=== PATIENT | male | born 1950 | race Caucasian/White ===

== ENCOUNTER 2020-10-18 13:33 | Outpatient (CLI) | payer MEDICARE, SELFPAY ==
--- NOTE | ~2020-10-18 | CT_ITS ---
EXAMINATION: CT abdomen pelvis wo/w con DATE: 10/18/2020 14:13 INDICATION: Gross hematuria TECHNIQUE: Computed tomography (CT) of the abdomen and pelvis was performed without intravenous contr ast. CT of the abdomen and pelvis was then performed with a total of 130 mL Omnipaque 350 intravenous contrast using a double-bolus technique for simultaneous opacification of the renal parenchyma and r enal collecting system. The dose-length product (DLP) was 1387.14 mGy-cm. Automated exposure control and iterative reconstruction technique were employed. COMPARISON: 05/28/2018 FINDINGS: Minimal dependent atelectasis is present in the lung bases. Cardiomegaly is noted. There ar e changes of coronary artery bypass grafting and aortic valve repair. The liver, spleen, pancreas, ga llbladder, and adrenal glands are normal. Cysts of the kidneys measure up to 1.4 cm on the left. Ther e is a 4 mm nonobstructing stone of the left kidney lower pole. No stones are identified in the left kidney, ureters, or bladder. There is no hydronephrosis or hydroureter. There is chronic irregularity at the base of the bladder wall near the prostate. A moderate volume of colonic stool is present. No pathologically enlarged abdominal or pelvic lymph nodes are identified. There is no free intraperito xochitl gas or evidence of bowel obstruction. The appendix is normal. There is moderate lumbar spondylos is. IMPRESSION: 1. Chronic irregularity at the base of the bladder which could reflect prostatomegaly, prior TURP pro cedure, or possibly bladder wall thickening. Direct visualization is recommended if not previously pe rformed. 2. Nonobstructing left nephrolithiasis. Reviewed, dictated and finalized at location A. ING MACHINE COLLECTOR IMPRESSION: 1. Chronic irregularity at the base of the bladder which could reflect prostato megaly, prior TURP procedure, or possibly bladder wall thickening. Direct visua lization is recommended if not previously performed. 2. Nonobstructing left nephrolithiasis.
--- NOTE | ~2020-10-18 | XR_ITS ---
EXAMINATION: XR abdomen/kub 1V INDICATION: Gross hematuria TECHNIQUE: Supine views of the abdomen were obtained on 2 radiographs. COMPARISON: CT from today FINDINGS: No urinary tract calculi are identified. The known left kidney lower pole stone is obscured by bowel gas. There are no dilated loops of bowel. Moderate lumbar spondylosis is noted. There is mi ld to moderate osteoarthritis of the hips. IMPRESSION: 1. No radiographic correlate for the patient's symptoms. Reviewed, dictated and finalized at location A. OR ARCHITECT
[2020-10-18 13:55] LABS: Estimated Glomerular Filt Rate 46
== END 2020-10-18 13:34 | disposition home or self-care (01) ==
PROVIDERS: PCP Internal Medicine; Visit Provider Nurse Practitioner Adult Health
DX: R31.0 Gross hematuria (principal); N20.0 Calculus of kidney
CPT/HCPCS: 74018; 74178; Q9967

== ENCOUNTER 2020-10-27 09:28 | Outpatient (CLI) | payer MEDICARE, SELFPAY ==
--- NOTE | ~2020-10-27 | XR_ITS ---
XR knee RT 3V 10/27/2020 09:45 Indication: Right knee pain Procedure: 3 views right knee Comparison: No prior studies for comparison. Findings: No fracture, subluxation or dislocation. No significant joint effusion. Mild osteoarthritis . Impression: 1: Mild osteoarthritis of the right knee. Reviewed, dictated and finalized at location A. SCRUBBER Impression: 1: Mild osteoarthritis of the right knee.
== END 2020-10-27 09:29 | disposition home or self-care (01) ==
PROVIDERS: PCP Internal Medicine; Visit Provider Nurse Practitioner
DX: M17.11 Unilateral primary osteoarthritis, right knee (principal)
CPT/HCPCS: 73562

== ENCOUNTER 2020-11-24 14:43 | Outpatient (CLI) | payer MEDICARE, SELFPAY ==
--- NOTE | ~2020-11-24 | CT_ITS ---
EXAMINATION: CT knee RT wo con DATE: 11/24/2020 15:18 INDICATION: Right knee pain. TECHNIQUE: Computed tomography (CT) of the right knee was performed without intravenous contrast. Aut omated exposure control and iterative reconstruction technique were employed. The dose-length product was 457.94 mGy-cm. COMPARISON: Right knee radiographs 10/27/2020 FINDINGS: Bone alignment is normal. No fracture. There is mild tricompartmental osteoarthritis. No kn ee joint effusion. There is severe fatty atrophy of semimembranosus muscle and tibialis anterior musc le. There are subcutaneous surgical clips medial to the proximal tibia. IMPRESSION: 1. Mild right knee osteoarthritis. Reviewed, dictated and finalized at location A. CAL RECORDS CLERK
== END 2020-11-24 14:44 | disposition home or self-care (01) ==
PROVIDERS: PCP Internal Medicine; Visit Provider Nurse Practitioner
DX: M17.11 Unilateral primary osteoarthritis, right knee (principal)
CPT/HCPCS: 73700

== ENCOUNTER 2021-08-03 09:35 | Outpatient (CLI) | payer MEDICARE, SELFPAY ==
--- NOTE | ~2021-08-03 | CT_ITS ---
EXAMINATION: CT brain wo con DATE: 08/03/2021 10:08 INDICATION: Left-sided headache and dizziness TECHNIQUE: Computed tomography (CT) of the head was performed without intravenous contrast. Sagittal and coronal reconstructions were performed. The mA was adjusted according to patient size. Iterative reconstruction technique was employed. The dose-length product was 605.33 mGy-cm. COMPARISON: None FINDINGS: No acute intracranial hemorrhage, acute infarction or abnormal extra axial fluid collection. There is mild scattered white matter hypoattenuation consistent with chronic small vessel ischemic disease. Ventricles are normal and symmetric. No mass/mass effect. Mucosal thickening in the bilateral ethmoid and maxillary sinuses. Prior bilateral antral window procedures. The orbits and mastoid air cells ar e normal. IMPRESSION: 1. Normal aging brain. No acute intracranial process. Reviewed, dictated and finalized at location A.
== END 2021-08-03 09:36 | disposition home or self-care (01) ==
LOC: ANHIMG 09:36
PROVIDERS: PCP Internal Medicine; Visit Provider Clinical Nurse Specialist
DX: R51.9 Headache, unspecified (principal)
CPT/HCPCS: 70450

== ENCOUNTER 2021-10-03 00:06 | Emergency (ER) | payer MEDICARE, SELFPAY ==
--- NOTE | ~2021-10-03 | CT_ITS ---
EXAMINATION: CT abdomen pelvis w con EXAM DATE: 10/03/2021 02:40 INDICATION: Epigastric pain. TECHNIQUE: Spiral CT of the abdomen and pelvis was performed following intravenous injection of 100 m L Omnipaque 350. Axial, coronal and sagittal images of the abdomen and pelvis were reviewed. The do se-length product (DLP) for this examination was 746.09 mGy-cm. The exposure was tailored according to patient size (auto mA exposure control), and iterative reconstruction (ASIR) was used as additiona l dose reduction technique. Comparison is made to prior examination from 10/18/2020. FINDINGS: The liver, spleen, adrenal glands and pancreas are unremarkable. The gallbladder is modera tely distended with enhancing mucosa and indistinct wall, small amount of pericholecystic fluid in th e gallbladder fossa. No calcified cholelithiasis. Possible acute cholecystitis. There is prostatomegaly, prostate measuring 5 cm in transverse dimension and also probable TURP defec t. Kidneys enhance symmetrically, no hydronephrosis. There is 4 mm left inferior calyceal stone which is nonobstructing. The bladder is unremarkable. There is no retroperitoneal or pelvic lymphadenop athy. There is mild scattered arteriosclerotic disease. There are no findings to suggest appendicitis. The stomach and small bowel are unremarkable. There is expected amount of colonic stool. No free intraperitoneal gas. The heart is normal in size. T here are no pericardial or pleural effusions. The lung bases are unremarkable. There are no osteobl astic or osteolytic lesions identified. IMPRESSION: Possible acute cholecystitis. Recommend clinical correlation, ultrasound. I discussed this case, recommendation with primary care provider Phuong Rae at 10/03/2021 08:50 CS T, patient has already been discharged from the emergency room. Reviewed, dictated and finalized at location B. P TECHNICIAN IMPRESSION: Possible acute cholecystitis. Recommend clinical correlation, ultra sound. I discussed this case, recommendation with primary care provider Phuong Rae at 10/03/2021 08:50 SETUP TECHNICIAN, patient has already been discharged from the emergency room.
--- NOTE | ~2021-10-03 | XR_ITS ---
EXAMINATION: XR chest 2V DATE: 10/03/2021 01:02 INDICATION: Midsternal chest pain TECHNIQUE: AP and lateral views of the chest are obtained. COMPARISON: 10/14/2019 FINDINGS: The lungs are free of acute opacities. There is no pleural effusion or pneumothorax. The he art size is normal. There are changes of cardiac valve surgery and coronary artery bypass grafting. T here is moderate thoracic spondylosis. IMPRESSION: 1. No acute cardiopulmonary abnormality. Reviewed, dictated and finalized at location A. TION TECHNICIAN AIRCRAFT
[2021-10-03 00:17] VITALS: BP 172/85; PULSE 61; RESP 21; TEMP 36.6; O2SAT 100
[2021-10-03 00:20] VITALS: BP 172/85; PULSE 59; RESP 15; O2SAT 100
--- NOTE | 2021-10-03 00:27 | ECG_ITS ---
Measurements Intervals [place] Rate: 60 P: 55 HI: 236 QRS: -56 QRSD: 133 T: 19 QT: 399 QTc: 399 Interpretive Statements SINUS RHYTHM WITH FIRST DEGREE AV BLOCK POSSIBLE LEFT ATRIAL ENLARGEMENT LEFT AXIS DEVIATION LEFT BUNDLE BRANCH BLOCK ABNORMAL ECG Electronically Signed On 10-03-2021 6:17:48 CLERICAL SUPERVISOR by Sid Marrufo D.O.
[2021-10-03 01:02] LABS: Basophils Percent Auto 0.4 % (0.2-1.2); Eosinophils Absolute Auto 0.2 K/mm3 (0-0.3); Eosinophils Percent Auto 2.1 % (0-4.4); Hematocrit 47.8 % (42.0-52.0); Hemoglobin 16.4 g/dL (14.0-18.0); Immature Granulocyte Absolute 0.02 K/mm3 (0.00-0.031); Immature Granulocyte Percent A 0.2 % (0-0.5); Immature Platelet Fraction Pct 4.8 % (0.9-11.2); Lymphocytes Absolute Auto 1.88 K/mm3 (0.9-3.2); Lymphocytes Percent Auto 23.2 % (18.3-44.2); Mean Corpuscular HGB Conc 34.3 g/dl (32-36); Mean Corpuscular Hemoglobin 30.8 pg (26-34); Mean Corpuscular Volume 89.8 fl (80-100); Mean Platelet Volume 10.8 fl (7.4-10.4); Monocytes Absolute Auto 0.4 K/mm3 (0.1-0.6); Monocytes Percent Auto 4.6 % (2.6-8.5); Neutrophils Absolute Auto 5.7 K/mm3 (1.3-6.7); Neutrophils Percent Auto 69.5 % (45.5-73.1); Platelet Count Result 142 k/mm3 (150-375); Red Blood Count 5.32 M/mm3 (4.6-6.20); Red Cell Distribution Width 13.2 % (11.5-14.5); White Blood Count 8.1 K/mm3 (4.5-10.0)
[2021-10-03 01:12] LABS: Alanine Aminotransferase 37 U/L (4-50); Albumin Level 4.4 g/dL (3.5-5.1); Alkaline Phosphatase 73 U/L (38-126); Anion Gap 11 mmol/L (8-16); Aspartate Amino Transferase 37 U/L (17-59); Blood Urea Nitrogen 19 mg/dL (9-20); Calcium 9.3 mg/dL (8.4-10.2); Carbon Dioxide 25 mmol/L (22-30); Chloride 104 mmol/L (98-107); Estimated CRCL calculation 61 ml/min; Estimated Glomerular Filt Rate > 60; Glucose 113 mg/dL (65-110); Lipase 83 U/L (23-300); Potassium 4.1 mmol/L (3.4-5.0); Sodium 140 mmol/L (137-145)
[2021-10-03 01:24] LABS: Troponin I < 0.012 ng/mL (0.000-0.034)
[2021-10-03 01:25] LABS: Prothrombin Time 13.1 Seconds (11.1-14.7)
[2021-10-03 01:26] LABS: Partial Thromboplastin Time 32.4 SECONDS (22.3-36.8)
[2021-10-03] MEDS: ASPIRIN 81 MG CHEWABLE TABLET 324 MG PO (01:31)
[2021-10-03] MEDS: LIDOCAINE HCL 2% VISC SOLN 15 ML UDC 20 ML PO (01:44)
[2021-10-03] MEDS: MAG HYDROX/AL HYDROX/SIMETH 30 ML UDC PO (01:44)
[2021-10-03] MEDS: SODIUM CHLORIDE 0.9% IV 1,000 ML 999 ML IV CONT (01:44)
--- NOTE | 2021-10-03 02:06 | ED.CHESTPAIN ---
HPI - Chest Pain General Chief Complaint: Chest Pain Stated Complaint: CP Time Seen by Provider: 10/03/21 00:46 Source: patient and old records reviewed History of Present Illness HPI narrative: Patient presents with epigastric pain that started around 4:30 PM. Patient reports he reports he was driving home from work when his pain developed. He took some Tums at home which provided some relief of his symptoms his pain persisted throughout the evening so he came to the ER for evaluation he describes it as a tight sensation without clear aggravating or alleviating factors. It radiates from his epigastric area up into his chest. He is attempted to walk around but that did not alleviate or exacerbate his symptoms. Is not noted shortness of breath or diaphoresis. Reports he has nausea but thinks it is due to the intensity of the pain denies any vomiting. 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 Related Data Home Medications Medication Instructions Recorded Confirmed aspirin [Aspir-81] 81 mg PO DAILY 08/27/19 08/03/21 atorvastatin 20 mg PO DAILY 08/27/19 08/03/21 famotidine 08/27/19 08/03/21 metoprolol tartrate 12.25 mg PO BID 08/27/19 08/03/21 zinc sulfate-vitamin C 200 mg-100 tablet PO DAILY tablet 10/27/20 08/03/21 mg tablet Allergies Allergy/AdvReac Type Severity Reaction Status Date / Time Penicillins Allergy Unknown Rash Verified 10/03/21 00:28 Review of Systems Review of Systems: CONSTITUTIONAL: Denies fever, chills, or sweats. EYES: Denies visual changes, redness, or discharge. ENT: Denies rhinorrhea, congestion, sore throat, or otalgia. CARDIOVASCULAR: Denies palpitations, or edema. RESPIRATORY: Denies cough or dyspnea. GASTROINTESTINAL: Denies abdominal pain, nausea, vomiting, or diarrhea. GENITOURINARY: Denies dysuria or hematuria. SKIN: Denies rash or itching. MUSCULOSKELETAL: Denies back pain, joint pain, or myalgia. NEUROLOGIC: Denies headache, numbness, dizziness, or weakness. PSYCHIATRIC: Denies anxiety or depression. All systems reviewed & are unremarkable except as noted in HPI and below PMFSH Past Medical History Medical History Allergies Gout Heart murmur History of measles, mumps, or rubella Insomnia Thrombocytopenia, unspecified Surgical History Surgical History History of prostate surgery 2010 Hx of CABG Family History Family History Mother Acute myocardial infarction Father Lupus Sibling Lupus Social History Social History Smoking status: Never smoker Alcohol intake: never Exam Narrative: GENERAL: Well-appearing, well-nourished, and in no acute distress. HEAD: Normocephalic, atraumatic. EYES: PERRLA and EOMI. ENT: Nares clear, no rhinorrhea or epistaxis. Mucous membranes moist. NECK: Supple. No masses. No JVD CHEST: Clear to auscultation. No respiratory distress. No wheezes rales or rhonchi HEART: Regular rate and rhythm. 3-5 systolic murmur previously noted normal peripheral pulses. ABDOMEN: Moderate tenderness palpation in the epigastric area soft, nondistended, normal active bowel sounds. EXTREMITIES: Normal range of motion. No edema. SKIN: Warm, dry, no rash. NEURO: No focal deficits. Alert and oriented x3. PSYCH: Normal mood and affect. Course Reevaluation(s) Reevaluation #1: Patient is feeling improved after GI cocktail. Date: 10/03/21 Time: 02:31 Reevaluation #2: Patient continues to feel much improved results and plan reviewed with patient. Patient is comfortable with outpatient plan. Date: 10/03/21 Time: 03:34 Vital Signs Vital signs: Vital Signs Temperature 36.6 C 10/03/21 00:17 Pulse Rate 61 10/03/21 00:17 Respiratory Rate 21 H 10/03/21 00:17 Blood Pressure 172/85 H 10/03/21 00:17 Pulse Oximetry
== END 2021-10-03 04:05 | disposition home or self-care (01) ==
PROVIDERS: Emergency Provider Emergency Medicine; PCP Internal Medicine
DX: R10.9 Unspecified abdominal pain (principal); R01.1 Cardiac murmur, unspecified; G47.00 Insomnia, unspecified; Z95.1 Presence of aortocoronary bypass graft
CPT/HCPCS: 36415; 71046; 74177; 80053; 83690; 84484; 85025; 85055; 85610; 85730; 93005; 96360; 99284; A9270; J7030; Q9967

== ENCOUNTER 2021-10-04 06:36 | Outpatient (CLI) | payer MEDICARE, SELFPAY ==
--- NOTE | ~2021-10-04 | US_ITS ---
EXAMINATION: US right upper quadrant DATE: 10/04/2021 08:00 INDICATION: Right upper quadrant pain TECHNIQUE: Multiple grayscale and Doppler ultrasound images of the abdomen were obtained. COMPARISON: None available FINDINGS: Bowel gas obscures visualization of the pancreas. The liver is normal with normal echogenic ity and echotexture. No surface nodularity. Normal hepatopetal flow in the main portal vein. The gall bladder is distended. No stones or gallbladder wall thickening are identified. The dilated common nathalie e duct measures 7 mm. IMPRESSION: 1. Distended gallbladder and common bile duct of unclear etiology. Consider further evaluation with n uclear hepatobiliary scan. Reviewed, dictated and finalized at location A. TAL PROGRAM MANAGER IMPRESSION: 1. Distended gallbladder and common bile duct of unclear etiology. Consider fur ther evaluation with nuclear hepatobiliary scan.
== END 2021-10-04 06:37 | disposition home or self-care (01) ==
LOC: ANHIMG 06:42
PROVIDERS: PCP Internal Medicine; Visit Provider Nurse Practitioner
DX: R10.13 Epigastric pain (principal)
CPT/HCPCS: 76705

== ENCOUNTER 2021-10-18 07:54 | Outpatient (CLI) | payer MEDICARE, SELFPAY ==
--- NOTE | 2021-10-18 | EST_ITS ---
Patient Info Name: Vaibhav Daniels Age: 71 years : 1950 Gender: Male Ht: 74 in Wt: 215 lbs BSA: 2.27 m2 Exam Date: 10/18/2021 9:20 AM Exam Location: [facility] Stress Patient Status: Outpatient Admit Date: 10/18/2021 Staff Ordering Physician: Brandyn Toledo MD Attending Provider: Brandyn Toledo MD Exercise Technologist: Krupa Navarrete RDCS Exercise Physician: Dakotah Mcrae MD Exam Type: CA stress radha w NM Study Info Indications Z01.818 - Encounter for other preprocedural examination R94.31 - Abnormal electrocardiogram ECG EKG I44.7 - Left bundle-branch block, unspecified A regadenoson stress test was performed. Summary 1. nondiagnostic EKG portion of Lexiscan stress test for ischemia. 2. Follow-up on SPECT images. Protocol: Lexiscan Stress ECG Details Stage: REST Duration (min): 1 min : 4 sec HR (bpm): 58 SBP (mmHg): 130 DBP (mmHg): 86 Stage: REST Duration (min): 12 min : 31 sec HR (bpm): 57 SBP (mmHg): 130 DBP (mmHg): 86 Stage: STAGE 1 Duration (min): 1 min : 0 sec HR (bpm): 64 SBP (mmHg): 134 DBP (mmHg): 81 Stage: RECOVERY Duration (min): 1 min : 0 sec HR (bpm): 76 SBP (mmHg): 134 DBP (mmHg): 81 Stage: RECOVERY Duration (min): 2 min : 0 sec HR (bpm): 75 SBP (mmHg): 144 DBP (mmHg): 74 Stage: RECOVERY Duration (min): 3 min : 0 sec HR (bpm): 72 SBP (mmHg): 133 DBP (mmHg): 75 Stage: RECOVERY Duration (min): 3 min : 59 sec HR (bpm): 75 SBP (mmHg): 133 DBP (mmHg): 75 Rest HR: 57 bpm Peak HR: 78 bpm Rest Sys BP: 130 mmHg Peak Sys BP: 144 mmHg Max Pred HR: 148 bpm % Max Pred HR: 53 % Target HR: 126 bpm Max RPP: 11,232 bpm*mmHg Total Time: 1 min : 0 sec Rest Dubois BP: 86 mmHg Peak Dubois BP: 74 mmHg Total Dose: 0.4 mg Resting ECG Sinus rhythm left bundle branch block. Stress ECG No diagnostic changes. Arrhythmias No arrhythmias were observed during the examination. Report Signatures
--- NOTE | ~2021-10-18 | NM_ITS ---
EXAMINATION: NM radha stress w perfusion DATE: 10/18/2021 10:42 INDICATION: New onset left bundle branch block. TECHNIQUE: Rest images were obtained following intravenous administration of 10.2 mCi Tc99m tetrofosm in (Myoview). The patient was infused intravenously with Lexiscan (regadenoson). Then, 30.16 mCi Tc99 m tetrofosmin (Myoview) was administered intravenously, and stress images were obtained. Data was rec onstructed into short axis and horizontal and vertical long axis SPECT images. Gated SPECT images wer e also obtained. COMPARISON: CT abdomen and pelvis 10/03/2021 FINDINGS: There is a small, mild, reversible perfusion defect involving left ventricular apex and api lee anterior segment, consistent with ischemia. There is no segmental wall motion abnormality. Left ventricular ejection fraction measures 55%. IMPRESSION: 1. Small area of mild ischemia involving left ventricle apex and apical anterior segment. 2. Normal left ventricular ejection fraction measuring 55%. Reviewed, dictated and finalized at location B. OLITHOGRAPHER IMPRESSION: 1. Small area of mild ischemia involving left ventricle apex and apical anterio r segment. 2. Normal left ventricular ejection fraction measuring 55%.
== END 2021-10-18 07:55 | disposition home or self-care (01) ==
LOC: ANHCARD 07:55
PROVIDERS: PCP Internal Medicine; Visit Provider Internal Medicine Cardiovascular Disease
DX: I44.7 Left bundle-branch block, unspecified (principal); Z01.818 Encounter for other preprocedural examination; R94.31 Abnormal electrocardiogram [ECG] [EKG]
CPT/HCPCS: 78452; 93017; A9502; J2785

== ENCOUNTER → 2021-10-19 01:05 | Outpatient (CLI) | payer MEDICARE, SELFPAY ==
[2021-10-20 16:52] LABS: SARS-CoV-2 RNA PCR Negative
== END ==
PROVIDERS: PCP Internal Medicine; Visit Provider Surgery
DX: Z01.812 Encounter for preprocedural laboratory examination (principal); Z20.822 Contact with and (suspected) exposure to COVID-19
CPT/HCPCS: C9803; U0003; U0005

== ENCOUNTER 2021-10-22 00:56 | Day surgery (SDC) | payer MEDICARE, SELFPAY ==
--- NOTE | 2021-10-17 12:36 | PC.NURSE ---
Report to the Outpatient Waiting Room, entrance under the green pavilion located off [facility], at time _1300 on date _10/22/21 . OR Time: _1500 . - You and your visitor will be asked a series of questions to screen for COVID 19 for your protection. - A mask is required within the hospital. - Only one visitor is allowed at this time. Patient visitors will be guided where to wait when not with patient. Preoperative COVID Testing Requirements: No COVID Test needed if: (proof is required; if not received patient will have Rapid Test prior to entry) COVID TESTING 10/19/21 AT 0915 - Patient has received COVID Vaccine at least 14 days prior to procedure date or - Patient has positive COVID test result within last 90 days of surgery date. COVID Test needed if above criteria is not met If not COVID vaccinated a COVID test must be conducted within 72 hours of surgery and patient is asked to isolate self from time of testing until procedure. You will go to the [facility] for your COVID testing. The [facility] site is located at the corner of [address] [facility]. You will only be called if COVID results are positive and your surgeon may reschedule your elective surgery date. Patients may have clear liquids (water, carbonated beverages, clear teas, apple juice) until 3 hours prior to surgery with a maximum of 20 ounces. - No food from midnight until time of surgery - Infants may have breast milk until 4 hours before surgery, formula 6 hours prior to surgery. - Children will be allowed to drink immediately following surgery. If applicable, please bring a bottle or sippy cup to assist with drinking. Juice, water, soda, and popsicles are readily available. For infants on formula, please bring formula the day of surgery. Pacifiers are allowed. Take the following medications with a SIP of water the morning of surgery: _METOPROLOL Medications to discontinue per physician ALL VITAMINS AND SUPPLEMENTS 3 DAYS PRE OP Date to take last dose__10/18/21 Please no make-up, nail german, hairspray, perfume, deodorant, or body powder the day of surgery. No jewelry (including any body piercings) or valuables the day of surgery, leave them at home. Please take a shower or bath the night before, or the morning of, surgery with an antibacterial soap. Wear comfortable, loose fitting clothing. Children are encouraged to wear pajamas. - Jewelry must be removed prior to entering the operating room. Rings and piercings that are not removed may be cut off. - The hospital will not accept responsibility for valuables. - Please leave all valuables, including medications, at home the day of surgery. HIBICLENS SHOWER MORNING OF SURGERY If you are going home after surgery, a licensed fence post driver must drive you home. - NO public transportation without another adult. - We recommend that an adult stay with you for 24 hours following discharge. - We also recommend that you do not drive, make important decision, drink alcoholic beverages, or take any drugs that were not prescribed by your health care provider for at least 24 hours after your discharge time. For Pediatric surgeries, we recommend two adults accompany the child home (only one inside the building at this time). Follow any additional instructions given to you from your surgeon. Telephone instructions given to _PATIENT and asked if any additional questions and then verbalized understanding. Patient advised to call surgeon office or pre surgery nurse liaison [phone] if any additional questions.
[2021-10-17 12:48] VITALS: BMI 27.6
[2021-10-22] VITALS (9 sets, daily range): BP systolic 124–169; BP diastolic 65–86; PULSE 49–62; RESP 12–20; TEMP 36.1; O2SAT 100
--- NOTE | ~2021-10-22 | XR_ITS ---
EXAMINATION: XR cholangiogram surg 1st inj DATE: 10/22/2021 15:44 INDICATION: Intraoperative evaluation during laparoscopic cholecystectomy TECHNIQUE: Multiple fluoroscopic images of the right upper quadrant were obtained during intraoperati ve cholangiography. A total of 62 fluoroscopic images were obtained. The amount of fluoroscopy time used during this procedure was 0.3 minutes. COMPARISON: None. FINDINGS: Cannulation of the cystic duct demonstrates filling of a normal appearing common bile duct which tapers smoothly distally with no intraluminal filling defects or stricture. Contrast extends i nto the duodenum and central intrahepatic biliary tree which also appears normal. IMPRESSION: 1. No filling defects or strictures within the common bile duct or contrast opacified central biliary tree. Reviewed, dictated and finalized at location B. [place] PRICING COORDINATOR IMPRESSION: 1. No filling defects or strictures within the common bile duct or contrast opa cified central biliary tree.
[2021-10-22] MEDS: ACETAMINOPHEN 500 MG TABLET 1000 MG PO (13:14)
[2021-10-22] MEDS: LACTATED RINGERS 1,000 ML 30 ML IV CONT ×2 (13:20→15:46)
[2021-10-22] MEDS: KETOROLAC 15 MG/ML VIAL (*BKC) IV PUSH (13:26)
[2021-10-22 13:38] LABS: Amylase 79 U/L (30-110)
--- NOTE | 2021-10-22 14:04 | WPDANESEPPF ---
Anes - Initial Pre Proc Eval Procedure: Operation Date: 10/22/21 15:00 Proposed Procedures p Laparoscopic Cholecystectomy with Intra Operative Cholangiogram, Possible Open - Robb Balderas DO Date/Time: 10/22/21 14:04 Surgeon: Robb Balderas DO Pre Op Diagnosis: Acute Cholecystitis Patient Data Age: 71 Gender: M Height: 1.88 m Weight: 94.6 kg Last Vital Signs Temp 36.1 C L 10/22/21 12:57 Pulse 62 10/22/21 12:57 Resp 20 10/22/21 12:57 BP 151/86 H 10/22/21 12:57 Pulse Ox 100 10/22/21 12:57 Allergies Allergy/AdvReac Type Severity Reaction Status Date / Time Penicillins Allergy Unknown Rash Verified 10/22/21 13:11 Home Medications Medication Instructions Recorded Confirmed Type aspirin [Aspir-81] 81 mg PO DAILY 08/27/19 10/22/21 History atorvastatin 20 mg PO DAILY 08/27/19 10/22/21 History famotidine 20 mg PO DAILY 08/27/19 10/22/21 History metoprolol tartrate 12.5 mg PO BID 08/27/19 10/22/21 History loratadine 10 mg tablet 10 mg PO DAILY #90 tablet 07/12/20 10/22/21 Rx zinc sulfate-vitamin C 200 mg-100 1 tablet PO DAILY tablet 10/27/20 10/22/21 History mg tablet omeprazole 40 mg PO DAILY #20 cap 10/03/21 10/22/21 Rx cholecalciferol (vitamin D3) 50 mcg PO DAILY 10/17/21 10/22/21 History finasteride 5 mg PO DAILY 10/17/21 10/22/21 History sucralfate 1 g PO BID 10/17/21 10/22/21 History Laboratory Tests 10/22/21 13:22 Amylase 79 U/L U/L (30-110) Patient hx anesthesia problems: none Family hx anesthesia problems: none Results Review: All pre-operative results and documents have been reviewed as part of the pre-operative evaluation. [facility] Past Medical History Medical History Allergies Cholecystitis Gout Heart murmur History of measles, mumps, or rubella Insomnia Thrombocytopenia, unspecified Surgical History Surgical History History of prostate surgery 2010 Hx of CABG Family History Family History Mother Acute myocardial infarction Father Lupus Sibling Lupus Social History Social History Smoking status: Never smoker Alcohol intake: never Living arrangements: alone Spiritual care concerns: No Anes - Eval Final PreProcedure Day of Procedure 10/22/21 14:04 Patient weight: overweight Heart: regular rate and rhythm Lungs: clear to auscultation Airway: Mallampati scale class II Neurological: alert and oriented Last oral intake: >/= 8 hours ASA classification: III Emergent: no Anesthetic plan: proceed Anesthesia type and monitoring: general ETT and standard monitoring Results Review: All pre-operative results and documents have been reviewed as part of the pre-operative evaluation. Informed Consent: The patient's anesthetic plan and its attendant risks and benefits were discussed with the patient/family/POA. Questions were solicited and answers provided to the satisfaction of the patient/family/POA.
--- NOTE | 2021-10-22 14:24 | WPDHPUPDATE1 ---
History and Physical Update Update Date/Time: 10/22/21 14:24 History and Physical has been reviewed, including an updated exam of the patient. There are NO changes in the patient's condition. Risks, benefits, and alternatives have been discussed and questions answered. Patient agrees to proceed with procedure.
[2021-10-22] MEDS: ceFAZolin 2 GM/D5W 50 ML 2 GM/50 ML BAG IVPB (14:45)
[2021-10-22] MEDS: BUPIVACAINE/EPINEPHRINE 0.5% 10 ML VIAL 30 ML INFILTRATE (15:05)
--- NOTE | 2021-10-22 15:47 | W.PM.PROC2 ---
Procedure Note - Detailed Date of Procedure 10/22/21 Pre-op Diagnosis Acute Cholecystitis Post-op Diagnosis same Procedure Performed Laparoscopic Cholecystectomy with intraoperative cholangiogram Surgeon Robb Balderas, DO Anesthesia general and local (0.5% bupivacaine) Indications This is a 71-year-old man who presented with a prior episode of acute epigastric abdominal pain. He had gone to the emergency department and CT showed evidence of gallbladder wall thickening demonstrating possible acute cholecystitis. He then had a follow-up gallbladder ultrasound which showed evidence of a slightly dilated common bile duct but no evidence of cholelithiasis or cholecystitis. Discussions were made with the patient about treatment options and decision was made to proceed with laparoscopic cholecystectomy with intraoperative cholangiogram, possible open. Findings Laparoscopic cholecystectomy was performed. There were a few pericholecystic adhesions and some gallbladder wall thickening. The cystic duct appeared normal in size. An intraoperative cholangiogram was obtained using Omnipaque contrast and there was no evidence of filling defects or bile duct obstruction. The gallbladder was removed and sent to the lab for pathology. No definite gallstones were noted. Description of Procedure Procedure as well as risks, benefits, and alternatives were discussed with patient. Written consent was obtained and placed in chart prior to procedure. The patient was brought back to surgical suite. Patient was placed in supine position on operating table. Time-out was done to confirm patient and procedure. Patient was then intubated by the anesthesia department. Abdomen was prepped and draped in sterile fashion using chlorhexidine prep. 0.5% bupivacaine with epinephrine was infiltrated at each site of incision. A 5 millimeter incision was made near the umbilicus, and a 5 millimeter Optiview trocar was advanced through the abdominal layers under direct visualization. Once inside the abdominal cavity, carbon dioxide was insufflated to create a pneumoperitoneum. The camera was inserted and the abdomen was inspected. No immediate abnormalities were identified. The patient was placed in reverse Trendelenburg position and rotated slightly to the left. An 11 millimeter incision was made in the subxiphoid region, and an 11 millimeter trocar was inserted under direct visualization. Two 5 millimeter incisions were made in the right upper quadrant, and two 5 millimeter trocars were inserted under direct visualization. The gallbladder was identified and grasped at the fundus and retracted superiorly. It was then grasped at the infundibulum retracted laterally. Careful dissection around the neck of the gallbladder was performed using blunt dissection with a [place] grasper and hook electrocautery. The cystic duct was identified, and a window was created behind it. The cystic artery was also identified and a window was created behind it. The critical view of safety was identified, visualizing the cystic duct running directly into the neck of the gallbladder, and the cystic artery running directly into the wall of the gallbladder. A 5 millimeter clip die keeper was then used to place 2 clips proximally and 1 clip distally on the cystic artery. It was then transected using endoscopic scissors. The Sousa clamp was then placed across the neck of the gallbladder and the cholangiocatheter was then advanced into the distal neck gallbladder. Saline was able to flush with ease. The patient was then flattened out in bed and the intraoperative cholangiogram was obtained using Omnipaque contrast and fluoroscopy. The images were sent to the radiologist for interpretation. The catheter was then removed and the patient was placed back in reverse Trendelenburg position. A 5 mm Endoclip die keeper was used to place 2 clips proximally and 1 clip distally on the cystic duct and then it was transected u
== END 2021-10-22 18:15 | disposition home or self-care (01) ==
PROVIDERS: PCP Internal Medicine; Visit Provider Surgery
PROC: 0FT44ZZ Resection of Gallbladder, Percutaneous Endoscopic Approach (ICD-10-PCS; CPT 47562; principal; 2021-10-22 15:00)
DX: K81.1 Chronic cholecystitis (principal); Z79.82 Long term (current) use of aspirin; R01.1 Cardiac murmur, unspecified; Z95.1 Presence of aortocoronary bypass graft
CPT/HCPCS: 47563; 36415; 74300; 82150; 86850; 86900; 86901; 88304; A9270; J0690; J1100; J1885; J2405; J2704; J2710; J7030; J7120; Q9966

== ENCOUNTER 2023-02-17 15:32 | Outpatient (CLI) | payer MEDICARE, OTHER, SELFPAY ==
[2023-02-17 17:54] LABS: Basophils Percent Auto 0.5 % (0.2-1.2); Eosinophils Absolute Auto 0.3 K/mm3 (0-0.3); Eosinophils Percent Auto 4.4 % (0-4.4); Hematocrit 46.7 % (42.0-52.0); Hemoglobin 15.4 g/dL (14.0-18.0); Immature Granulocyte Absolute 0.03 K/mm3 (0.00-0.031); Immature Granulocyte Percent A 0.4 % (0-0.5); Immature Platelet Fraction Pct 8.1 % (0.9-11.2); Lymphocytes Absolute Auto 2.11 K/mm3 (0.9-3.2); Lymphocytes Percent Auto 27.5 % (18.3-44.2); Mean Corpuscular Hemoglobin 30.3 pg (26-34); Mean Corpuscular Volume 91.9 fl (80-100); Mean Platelet Volume 11.5 fl (7.4-10.4); Monocytes Absolute Auto 0.4 K/mm3 (0.1-0.6); Monocytes Percent Auto 5.2 % (2.6-8.5); Neutrophils Absolute Auto 4.8 K/mm3 (1.3-6.7); Platelet Count Result 114 k/mm3 (150-375); Red Blood Count 5.08 M/mm3 (4.6-6.20); Red Cell Distribution Width 13.6 % (11.5-14.5); White Blood Count 7.7 K/mm3 (4.5-10.0)
[2023-02-17 18:38] LABS: Alanine Aminotransferase 45 U/L (6-50); Albumin Level 3.9 g/dL (3.5-5.1); Alkaline Phosphatase 77 U/L (38-126); Anion Gap 3 mmol/L (8-16); Aspartate Amino Transferase 55 U/L (17-59); Blood Urea Nitrogen 21 mg/dL (9-20); Calcium 8.4 mg/dL (8.4-10.2); Carbon Dioxide 29 mmol/L (22-30); Chloride 106 mmol/L (98-107); Estimated Glomerular Filt Rate > 60; Glucose 95 mg/dL (65-110); Potassium 4.5 mmol/L (3.4-5.0); Sodium 138 mmol/L (137-145)
[2023-02-17 18:59] LABS: Hepatitis B Surface Antigen Negative (Negative)
[2023-02-17 19:04] LABS: Hemoglobin A1C 5.5 % (<5.7)
[2023-02-17 19:05] LABS: HAV RESULT Negative (Negative); Hepatitis B Core IgM Result Negative (Negative)
[2023-02-17 19:17] LABS: Hepatitis C Virus Antibody Negative (Negative)
[2023-02-20 15:09] LABS: Albumin 3.8 g/dL (3.8-4.8); Alpha 1 Globulin 0.3 g/dL (0.2-0.3); Alpha 2 Globulin 0.6 g/dL (0.5-0.9); Beta 1 Globulin 0.3 g/dL (0.4-0.6); Gamma Globulin 0.8 g/dL (0.8-1.7)
[2023-02-23 23:41] LABS: Creatinine, Random Urine 146 mg/dL (20-320); Total Protein/Creatinine Ratio 96 mg/g creat (25-148)
== END 2023-02-17 15:33 | disposition home or self-care (01) ==
LOC: ANHGOSHLAB 15:36
PROVIDERS: PCP Internal Medicine
DX: R21 Rash and other nonspecific skin eruption (principal); L29.9 Pruritus, unspecified
CPT/HCPCS: 36415; 80053; 80074; 82570; 83036; 84155; 84156; 84165; 84166; 84443; 85025; 85055

== ENCOUNTER 2023-04-11 11:07 | Outpatient (CLI) | payer MEDICARE, OTHER, SELFPAY ==
[2023-04-11 18:36] LABS: Basophils Percent Auto 0.6 % (0.2-1.2); Eosinophils Absolute Auto 0.3 K/mm3 (0-0.3); Eosinophils Percent Auto 4.3 % (0-4.4); Hemoglobin 15.8 g/dL (14.0-18.0); Immature Granulocyte Absolute 0.03 K/mm3 (0.00-0.031); Immature Granulocyte Percent A 0.4 % (0-0.5); Lymphocytes Absolute Auto 1.77 K/mm3 (0.9-3.2); Lymphocytes Percent Auto 25.6 % (18.3-44.2); Mean Corpuscular HGB Conc 32.9 g/dl (32-36); Mean Corpuscular Hemoglobin 30.6 pg (26-34); Mean Platelet Volume 11.8 fl (7.4-10.4); Monocytes Absolute Auto 0.3 K/mm3 (0.1-0.6); Monocytes Percent Auto 4.8 % (2.6-8.5); Neutrophils Absolute Auto 4.5 K/mm3 (1.3-6.7); Neutrophils Percent Auto 64.3 % (45.5-73.1); Platelet Count Result 114 k/mm3 (150-375); Red Blood Count 5.16 M/mm3 (4.6-6.20); Red Cell Distribution Width 13.6 % (11.5-14.5); White Blood Count 6.9 K/mm3 (4.5-10.0)
[2023-04-11 18:40] LABS: Alanine Aminotransferase 42 U/L (6-50); Albumin Level 4.1 g/dL (3.5-5.1); Alkaline Phosphatase 71 U/L (38-126); Anion Gap 6 mmol/L (8-16); Aspartate Amino Transferase 46 U/L (17-59); Bilirubin,Total 1.3 mg/dL (0.2-1.3); Blood Urea Nitrogen 23 mg/dL (9-20); Calcium 9.1 mg/dL (8.4-10.2); Carbon Dioxide 30 mmol/L (22-30); Chloride 106 mmol/L (98-107); Estimated Glomerular Filt Rate 54; Glucose 102 mg/dL (65-110); Potassium 4.6 mmol/L (3.4-5.0); Sodium 142 mmol/L (137-145)
== END 2023-04-11 11:08 | disposition home or self-care (01) ==
LOC: ANHGOSHLAB 11:13
PROVIDERS: PCP Internal Medicine
DX: Z79.899 Other long term (current) drug therapy (principal)
CPT/HCPCS: 36415; 80053; 85025

== ENCOUNTER → 2023-05-26 12:57 | Outpatient (CLI) | payer MEDICARE, OTHER, SELFPAY ==
--- NOTE | ~2023-05-26 | US_ITS ---
EXAMINATION: US soft tissue head and neck DATE: 05/26/2023 13:09 INDICATION: Localized swelling, mass and lump at the posterior neck/upper back TECHNIQUE: Multiple grayscale and Doppler ultrasound images of the region of concern at the posterior neck/upper back were obtained. COMPARISON: None FINDINGS/IMPRESSION: Nonspecific ovoid 3.5 x 3.3 x 1.6 cm hypoechoic mass in the subcutaneous fat at the region of concern which is without evident internal vascular flow on color Doppler. Appearance would be consistent wit h and statistically most likely to represent a lipoma. Reviewed, dictated and finalized at location B.
== END ==
PROVIDERS: PCP Nurse Practitioner; Visit Provider Nurse Practitioner
DX: R22.1 Localized swelling, mass and lump, neck (principal)
CPT/HCPCS: 76536

== ENCOUNTER 2023-08-15 12:32 | Outpatient (CLI) | payer MEDICARE, OTHER, SELFPAY ==
--- NOTE | ~2023-08-15 | MMUS_ITS ---
EXAMINATION: MM diagnostic homero LT w ghazala, US breast LT complete HISTORY: Mastodynia, lump, left breast TECHNIQUE: Bilateral MLO and left full field and spot CC 3-D tomosynthesis images were performed and synthetic 2-D images were generated. CAD analysis was submitted and interpreted. High resolution comp lete left breast ultrasound was performed. COMPARISON: None BREAST PARENCHYMAL COMPOSITION: There are scattered areas of fibroglandular density. FINDINGS: MAMMOGRAPHIC FINDINGS: There is very mild left gynecomastia. No suspicious mass, architectural distortion, microcalcificatio ns, skin thickening or retraction is detected. ULTRASOUND: There is a small amount of fibroglandular stroma in the the nipple consistent with very mild gynecoma stia. No suspicious mass or shadowing is detected. IMPRESSION: Mild left gynecomastia BI-RADS Category 1: Negative Reviewed, dictated and finalized at location A. IMPRESSION: Mild left gynecomastia BI-RADS Category 1: Negative
== END 2023-08-15 12:33 | disposition home or self-care (01) ==
LOC: ANHIMG 12:35
PROVIDERS: PCP Internal Medicine; Visit Provider Nurse Practitioner Family
DX: N64.4 Mastodynia (principal); N63.0 Unspecified lump in unspecified breast
CPT/HCPCS: 76641; 77061; 77065; G0279

== ENCOUNTER 2023-08-21 15:46 | Outpatient (CLI) | payer MEDICARE, OTHER, SELFPAY ==
[2023-08-21 16:02] LABS: Basophils Percent Auto 0.5 % (0.2-1.2); Eosinophils Absolute Auto 0.1 K/mm3 (0-0.3); Eosinophils Percent Auto 1.3 % (0-4.4); Hematocrit 48.5 % (42.0-52.0); Immature Granulocyte Absolute 0.06 K/mm3 (0.00-0.031); Immature Granulocyte Percent A 0.7 % (0-0.5); Lymphocytes Absolute Auto 1.68 K/mm3 (0.9-3.2); Lymphocytes Percent Auto 19.8 % (18.3-44.2); Mean Corpuscular Hemoglobin 30.4 pg (26-34); Mean Platelet Volume 10.7 fl (7.4-10.4); Monocytes Absolute Auto 0.3 K/mm3 (0.1-0.6); Monocytes Percent Auto 3.4 % (2.6-8.5); Neutrophils Absolute Auto 6.3 K/mm3 (1.3-6.7); Neutrophils Percent Auto 74.3 % (45.5-73.1); Platelet Count Result 154 k/mm3 (150-375); Red Blood Count 5.27 M/mm3 (4.6-6.20); Red Cell Distribution Width 13.1 % (11.5-14.5); White Blood Count 8.5 K/mm3 (4.5-10.0)
[2023-08-21 16:57] LABS: Iron 57 ug/dL (49-181)
[2023-08-21 17:07] LABS: Percent Iron Saturation 25 % (20-50)
[2023-08-21 17:24] LABS: Alanine Aminotransferase 44 U/L (6-50); Albumin Level 4.3 g/dL (3.5-5.1); Alkaline Phosphatase 73 U/L (38-126); Anion Gap 5 mmol/L (8-16); Aspartate Amino Transferase 33 U/L (17-59); Bilirubin,Total 0.6 mg/dL (0.2-1.3); Blood Urea Nitrogen 18 mg/dL (9-20); Calcium 9.1 mg/dL (8.4-10.2); Carbon Dioxide 30 mmol/L (22-30); Chloride 104 mmol/L (98-107); Estimated Glomerular Filt Rate > 60; Glucose 119 mg/dL (65-110); Potassium 4.6 mmol/L (3.4-5.0); Sodium 139 mmol/L (137-145)
[2023-08-21 18:38] LABS: Folic Acid 11.7 ng/mL (2.76->20)
[2023-08-24 19:18] LABS: Methylmalonic Acid 137 nmol/L (87-318)
[2023-08-26 11:36] LABS: Soluble Transferrin Receptor 1.71 mg/L (0.76-1.76)
[2023-08-26 22:47] LABS: Platelet Antibody, Direct NEGATIVE (NEGATIVE)
== END 2023-08-21 15:47 | disposition home or self-care (01) ==
LOC: ANHLAB 15:49
PROVIDERS: PCP Internal Medicine; Visit Provider Internal Medicine Hematology & Oncology
DX: D64.9 Anemia, unspecified (principal); D69.59 Other secondary thrombocytopenia
CPT/HCPCS: 36415; 80053; 82607; 82728; 82746; 83540; 83550; 83921; 84238; 85025; 86023

== ENCOUNTER → 2023-08-29 07:54 | Outpatient (CLI) | payer MEDICARE, OTHER, SELFPAY ==
--- NOTE | ~2023-08-29 | US_ITS ---
EXAMINATION: US abdomen complete DATE: 08/29/2023 08:15 INDICATION: Thrombocytopenia TECHNIQUE: Multiple grayscale and Doppler ultrasound images of the abdomen were obtained. COMPARISON: 10/04/2021 FINDINGS: Bowel gas obscures visualization of the pancreas. The liver is normal with normal echogenic ity and echotexture. No surface nodularity. Normal hepatopetal flow in the main portal vein. The gall bladder is surgically absent. The normal common bile duct measures 7 mm. There was no sonographic Mur phy sign. The visualized portions of the aorta and inferior vena cava are normal. The spleen is normal in appearance and measures 13.4 cm. The right kidney measures 9.8 x 4.7 x 4.9 cm . The left kidney measures 10.8 x 4.3 x 5.8 cm and contains a 2 cm cyst. The kidneys demonstrate norm al parenchymal echogenicity. There is no hydronephrosis. IMPRESSION: 1. No sonographic correlate for the patient's symptoms. Reviewed, dictated and finalized at location B. GRINDER OPERATOR EXTERNAL
== END ==
PROVIDERS: PCP Internal Medicine; Visit Provider Internal Medicine Hematology & Oncology
DX: D69.59 Other secondary thrombocytopenia (principal)
CPT/HCPCS: 76700

== ENCOUNTER 2024-05-04 10:26 | Outpatient (CLI) | payer MEDICARE, SELFPAY ==
--- NOTE | ~2024-05-04 | CT_ITS ---
EXAMINATION: CTA chest PE protocol DATE: 05/04/2024 10:56 INDICATION: Chest pain and shortness of breath post recent cardiac catheterization TECHNIQUE: Computed tomography (CT) pulmonary angiogram of the chest was performed with 100 mL Omnipa que-350 intravenous contrast. Additional 3D reconstructions utilizing coronal maximum intensity proje ction (MIP) were performed. Automated exposure control and iterative reconstruction technique were em ployed. The dose-length product was 596.21 mGy-cm. COMPARISON: None FINDINGS: Excellent contrast opacification of the pulmonary arteries demonstrating no pulmonary embolism. Minim al dependent atelectasis in the bilateral lower lobes. No pneumonia, pulmonary edema, pleural effusio n or pneumothorax. Heart size is normal. Atherosclerotic coronary artery calcifications postoperative change of prior median sternotomy and coronary artery bypass grafting. Aortic valve repair. Fusiform ascending thoracic aortic aneurysm measuring up to 4.5 cm in maximal diameter. There is a 9 x 6 x 10 mm outpouching of contrast along the left anterior wall of the proximal ascending thoracic aorta (se gisella 3, image 113 and series 603, image 87) potentially aortotomy site for coronary artery bypass gra fting although a definitive bypass vessel arising from the outpouching is not appreciated and differe ntial would include small saccular aneurysm. No pathologically enlarged thoracic lymphadenopathy. Cho lecystectomy clips at the gallbladder fossa. A few tiny splenic calcifications consistent with old gr anulomatous disease. Moderate thoracic spondylosis. IMPRESSION: 1. No pulmonary masses or other acute cardiopulmonary disease. 2. 9 x 6 x 10 mm outpouching of contrast along the left anterior wall the proximal ascending thoracic aorta with differential including a thoracotomy site for coronary artery bypass grafting versus smal l saccular aneurysm. Correlate with details of prior coronary artery bypass grafting and reported rec ent cardiac catheterization. Reviewed, dictated and finalized at location A. IMPRESSION: 1. No pulmonary masses or other acute cardiopulmonary disease. 2. 9 x 6 x 10 mm outpouching of contrast along the left anterior wall the proxi mal ascending thoracic aorta with differential including a thoracotomy site for coronary artery bypass grafting versus small saccular aneurysm. Correlate with details of prior coronary artery bypass grafting and reported recent cardiac c atheterization.
[2024-05-04 10:52] LABS: Estimated Glomerular Filt Rate 59
== END 2024-05-04 10:27 | disposition home or self-care (01) ==
PROVIDERS: PCP Internal Medicine; Visit Provider Internal Medicine Cardiovascular Disease
DX: R07.9 Chest pain, unspecified (principal)
CPT/HCPCS: 71275; Q9967

== ENCOUNTER 2024-06-23 17:55 | Observation (INO) | payer MEDICARE, SELFPAY ==
[2024-06-23] VITALS (21 sets, daily range): BP systolic 144–159; BP diastolic 71–86; PULSE 52–64; RESP 7–18; TEMP 36.6–36.9; O2SAT 99–100
--- NOTE | ~2024-06-23 | XR_ITS ---
EXAMINATION: XR chest 2V DATE: 06/24/2024 19:19 INDICATION: Stroke. TECHNIQUE: Frontal and lateral views of the chest were obtained. COMPARISON: Chest 2 views 10/03/2021, chest CT 05/04/2024 FINDINGS: There is no pneumonia, pleural effusion, or pneumothorax. The heart size is normal. There a re changes of aortic valve replacement. IMPRESSION: 1. No acute cardiopulmonary disease. Reviewed, dictated and finalized at location A.
--- NOTE | ~2024-06-23 | CT_ITS ---
Non-contrast Head CT History: Altered mental status COMPARISON: 06/23/2024 Technique: Axial non-contrast imaging of the brain was performed. Dose reduction technique was used on this scan by utilizing automated exposure control and iterative reconstruction technique. The dose -length product (DLP) was 681.00 mGy-cm. Findings: There is no evidence of intracranial hemorrhage, mass lesion, or acute infarct. Brain par enchyma appears normal. The ventricles and subarachnoid spaces are normal in size. The calvarium ap pears normal. The visualized paranasal sinuses and mastoid air cells are clear. Impression: No significant abnormality seen. Reviewed, dictated and finalized at location . Impression: No significant abnormality seen.
--- NOTE | ~2024-06-23 | CT_ITS ---
EXAMINATION: CTA brain carotid DATE: 06/23/2024 19:39 INDICATION: Altered mental status. TECHNIQUE: Computed tomographic angiography (CTA) of the head was performed without and with 100 mL O mnipaque-350 intravenous contrast. CTA of the neck was performed with intravenous contrast. Automated exposure control and iterative reconstruction technique were employed. The dose-length product was 1 842.98 mGy-cm. Maximum intensity projection and volume rendered 3D-reconstructions were created by mounika auguste technologist on a separate workstation. COMPARISON: Head CT 08/03/2021 FINDINGS: HEAD CTA: There is diffuse brain volume loss. There is no intracranial hemorrhage, acute infarction, or abnormal intracranial mass lesion. The ventricles are normal in size. There is mild mucosal thicke sue in the paranasal sinuses. There are likely changes of ocular lens replacement surgeries. The mas toid air cells are normal. Left vertebral artery is dominant. There is no significant stenosis of bas ilar artery or the posterior cerebral arteries. There is no significant stenosis of intracranial inte rnal carotid arteries or anterior or middle cerebral arteries. Anterior communicating artery is sailaja l. There is no aneurysm. NECK CTA: There is mild scarring at the lung apices. There are nodules in the thyroid measuring up to 10 mm, likely not clinically significant. There are no pathologically enlarged lymph nodes. There is severe stenosis of the origin of right vertebral artery. There is plaque in the proximal internal ca rotid arteries. There is 0% stenosis of the proximal right internal carotid artery relative to normal distal artery lumen diameter (NASCET criteria). There is 0% stenosis of the proximal left internal c arotid artery relative to normal distal artery lumen diameter. There is severe cervical spondylosis. IMPRESSION: 1. Normal aging brain. 2. No aneurysm or significant intracranial arterial stenosis. 3. 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 4. 0% stenosis of the proximal internal carotid arteries relative to normal distal artery lumen diame ters (NASCET criteria). Reviewed, dictated and finalized at location A. IMPRESSION: 1. Normal aging brain. 2. No aneurysm or significant intracranial arterial stenosis. 3. 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 4. 0% stenosis of the proximal internal carotid arteries relative to normal dis clay artery lumen diameters (NASCET criteria).
[2024-06-23 18:40] LABS: Basophils Percent Auto 0.3 % (0.2-1.2); Eosinophils Absolute Auto 0.2 K/mm3 (0-0.3); Eosinophils Percent Auto 3.9 % (0-4.4); Hematocrit 44.1 % (42.0-52.0); Immature Granulocyte Absolute 0.03 K/mm3 (0.00-0.031); Immature Granulocyte Percent A 0.5 % (0-0.5); Immature Platelet Fraction Pct 4.1 % (0.9-11.2); Lymphocytes Absolute Auto 2.15 K/mm3 (0.9-3.2); Lymphocytes Percent Auto 35.2 % (18.3-44.2); Mean Corpuscular Hemoglobin 30.7 pg (26-34); Mean Corpuscular Volume 90.2 fl (80-100); Mean Platelet Volume 10.6 fl (7.4-10.4); Monocytes Absolute Auto 0.3 K/mm3 (0.1-0.6); Monocytes Percent Auto 4.9 % (2.6-8.5); Neutrophils Absolute Auto 3.4 K/mm3 (1.3-6.7); Neutrophils Percent Auto 55.2 % (45.5-73.1); Platelet Count Result 139 k/mm3 (150-375); Red Blood Count 4.89 M/mm3 (4.6-6.20); White Blood Count 6.1 K/mm3 (4.5-10.0)
[2024-06-23 18:46] LABS: Alanine Aminotransferase 33 U/L (6-50); Albumin Level 4.1 g/dL (3.5-5.1); Alkaline Phosphatase 62 U/L (38-126); Anion Gap 8 mmol/L (4-12); Aspartate Amino Transferase 37 U/L (17-59); Bilirubin,Total 0.8 mg/dL (0.2-1.3); Blood Urea Nitrogen 24 mg/dL (9-20); Calcium 8.9 mg/dL (8.4-10.2); Carbon Dioxide 26 mmol/L (22-30); Chloride 105 mmol/L (98-107); Estimated CRCL calculation 63 ml/min; Estimated Glomerular Filt Rate 59; Glucose 84 mg/dL (65-110); Potassium 4.2 mmol/L (3.4-5.0); Sodium 139 mmol/L (137-145)
--- NOTE | 2024-06-23 18:46 | ED.AMS ---
HPI - Altered Mental Status General Chief Complaint: Altered Mental Status Stated Complaint: confusion since this am Time Seen by Provider: 06/23/24 18:30 History of Present Illness HPI narrative: 74-year-old male presents emergency department for evaluation for altered mental status. Patient states that he did go to bed last night and felt that he was at his baseline. Patient reports he woke up this morning he had onset of confusion. Patient reports that the confusion was worsened this morning for approximately 45 minutes but then did improve. Patient describes about 45 minutes this morning where he was confused about what he was supposed to be doing. Patient states that symptoms did improve enough to the point where he is able to go to work and buttock he did well work. Patient does state that he feels like his phone texts are changing and does feel that something is wrong. Related Data Home Medications Medication Instructions Recorded Confirmed aspirin 81 mg tablet,delayed 81 mg PO DAILY 08/27/19 06/23/24 release (Aspir-) famotidine 20 mg tablet 20 mg PO DAILY 08/27/19 06/23/24 finasteride 5 mg tablet 5 mg PO DAILY 10/17/21 06/23/24 amlodipine 5 mg tablet 5 mg PO DAILY 05/10/24 06/23/24 atorvastatin 40 mg tablet 40 mg PO HS 05/10/24 06/23/24 furosemide 20 mg tablet 20 mg PO WEEKLY PRN SWELLING 05/10/24 06/24/24 metoprolol tartrate 25 mg tablet 25 mg PO BID 05/10/24 06/23/24 sildenafil (pulm.hypertension) 20 20 mg PO DAILY PRN erectal 05/10/24 06/24/24 mg tablet dysfunction clopidogrel 75 mg tablet 75 mg PO DAILY 06/24/24 06/24/24 Allergies Allergy/AdvReac Type Severity Reaction Status Date / Time Penicillins Allergy Unknown Rash Verified 05/10/24 13:22 Review of Systems Review of Systems: All systems reviewed & are unremarkable except as noted in HPI and below PMFSH Past Medical History Medical History (Updated 06/24/24 @ 21:06 by Tobin Daniels MD) Allergies Breast mass in male Breast pain in male Cholecystitis Chronic sinusitis Gout Heart attack Heart murmur History of measles, mumps, or rubella Insomnia Thrombocytopenia, unspecified Surgical History Surgical History History of cholecystectomy History of prostate surgery 2010 Hx laparoscopic cholecystectomy 10/22/21 Hx of CABG Family History Family History Mother Acute myocardial infarction Father Lupus Sibling Lupus Social History Social History Smoking status: Never smoker Alcohol intake: never Do You Feel Safe in your Home?: Yes Lack of Transportation: No Lack of Food: Never True Current Housing: I Have Housing Concerned About Future Housing: No Difficulty Paying Gas/Electric Bills: No Difficulty Paying for Meds: No Currently Unemployed: No Education: High School Diploma/GED Difficulty w/ Childcare or Family Care: No Living arrangements: alone Spiritual care concerns: No Exam Narrative: APPEARANCE: Well appearing, no pain, no distress, well-nourished. HEAD: normocephalic, atraumatic. EYES: PERRLA/EOMI, conjunctivae clear. NOSE: Normal no drainage EARS:TMS clear with good light reflex. THROAT: Pharynx clear, no exudate. NECK: Supple. No adenopathy, no masses. RESPIRATORY: Airway patent, respirations nonlabored. Clear to auscultation bilaterally, no rales, rhonchi, wheezing. CARDIOVASCULAR: Regular rate and rhythm without murmurs rubs or gallops. ABDOMINAL: Soft, nontender, nondistended, normal bowel sounds MUSCULOSKELETAL: Moves all extremities. Strength/ROM intact, No edema, No calf tenderness. NEURO: Alert. Cranial nerves II through XII intact. Good gait. Good coordination SKIN: Warm, dry. Normal Color Course Course Emergency Course: Patient was admitted to the hospitalist service. Vital Signs Vital signs:
[2024-06-23 19:33] LABS: Prothrombin Time 13.5 Seconds (11.1-14.7)
[2024-06-23 19:34] LABS: Partial Thromboplastin Time 31.3 Seconds (22.3-36.8)
[2024-06-23 20:41] LABS: Add Urine Microscopic? NO; Appearance Urine Clear (Clear); Bilirubin Urine Negative (Negative); Blood Urine Negative (Negative); Color Urine Yellow (Yellow); Glucose Urine UA Negative (Negative); Ketones Urine Negative (Negative); Leukocyte Esterase Ur Negative LEU/UL (Negative); Nitrate Urine Negative (Negative); Protein Urine Negative (Negative); Urobilinogen Urine 0.2 mg/dL (<2.0)
[2024-06-23 20:57] LABS: Influenza A QL RT-PCR Negative (Negative); Influenza B QL RT-PCR Negative (Negative); RSV RNA, RT-PCR Negative (Negative); SARS-CoV-2 RNA PCR Negative (Negative)
--- NOTE | 2024-06-23 22:12 | ECG_ITS ---
Test Date: 2024-06-23 23:01:47 Measurements Intervals [place] Rate: 54 P: 45 [place]: 269 QRS: -58 QRSD: 138 T: 38 QT: 436 QTc: 414 Interpretive Statements SINUS BRADYCARDIA WITH FIRST DEGREE AV BLOCK LEFT AXIS DEVIATION LEFT BUNDLE BRANCH BLOCK BASELINE ARTIFACT- I, II, III, AVR, AVL, AVF ABNORMAL ECG No previous ECG available for comparison Electronically Signed On 06-24-2024 05:33:21 CDT by Sid Marrufo D.O.
[2024-06-23] MEDS: SODIUM CHLORIDE 0.9% IV 1,000 ML 999 ML IV CONT ×2 (22:27→22:46)
--- NOTE | 2024-06-23 23:46 | ADMGEN ---
This patient, Vaibhav Daniels, was admitted to [facility] Surg Room 325-02. Patient/family oriented to hospital policies and general routines including ID bracelet, bed and alarms, visiting hours, pain management, procedures, bathroom and other care routines, personal items, smoking policy, room service/diet, and visiting hours. Information on how to activate the Rapid Response Team has been discussed. Patient/Family are encouraged to report perceived risks to care and to ask questions if they do not understand what they are told or what they should do.
[2024-06-24] VITALS (10 sets, daily range): BP systolic 134–165; BP diastolic 67–85; PULSE 51–89; RESP 12–18; TEMP 36.1–36.5; O2SAT 96–100; BMI 27.1
--- NOTE | 2024-06-24 | ECHO_ITS ---
Patient Info Name: Vaibhav Daniels Age: 74 years : 1950 Gender: Male Ht: 74 in Wt: 211 lbs BSA: 2.25 m2 HR: 56 bpm BP: 139 / 67 mmHg Heart Rhythm: Sinus Rhythm Technical Quality: Fair Exam Date: 06/24/2024 1:07 PM Exam Location: Echo Lab Patient Status: Inpatient Admit Date: 06/23/2024 Staff Ordering Physician: Salvatore Sorto MD Ip Attorney: Tony Bansal RDCS Attending Provider: Pepper Sabillon DO Exam Type: CA echo dop color flow w con Study Info Indications - AMS Complete two-dimensional, color flow and Doppler transthoracic echocardiogram is performed with contrast to opacify the left ventricle and to improve the deliniation of the left ventricle endocardial borders. Contrast/Agitated Saline Contrast/Ag. Saline: Definity Amount: 2.00 ml Existing IV Access: Yes IV Access Condition: patent with no signs of infiltration Summary 1. LVH with normal contractility. 2. Trileaflet aortic valve that is not stenotic. 3. MIld Mitral and Tricuspid regurgitation. 4. Compared with echo from 2019 the aortic valve is not stenotic ? Biopsosthetic AVR ? No clinical information is provided. Left Ventricle Left ventricular chamber dimension is normal. Left ventricular systolic function is normal, estimated at 60-65%. There is moderate concentric increased left ventricular wall thickness. The left ventricular diastolic function is grade I diastolic dysfunction. Right Ventricle Right ventricular chamber dimension is normal. Left Atria Left atrial chamber dimension is mildly enlarged. Right Atria Right atrial chamber dimension is normal. Aortic Valve The aortic valve is trileaflet. There is no aortic valve stenosis. There is no aortic valve regurgitation. Pulmonic Valve The pulmonic valve is not well visualized. Mitral Valve The mitral valve has normal leaflets. There is mild mitral valve regurgitation. Tricuspid Valve The tricuspid valve leaflets are normal. There is mild tricuspid valve regurgitation. Pericardium/Pleural The pericardium appears normal. Aorta The aortic root size at the sinus of Valsalva is normal. Left Ventricular Outflow Tract Name Value Normal LVOT 2D LVOT Diameter 2.22 cm LVOT Doppler LVOT Peak Gradient 7 mmHg LVOT Mean Gradient 4 mmHg LVOT VTI 27.74 cm LVOT VTI/AV VTI Ratio 0.43 LVOT Stroke Volume 107.46 ml LVOT CO 5.96 l/min LVOT CI 2.65 L/min/m2 Pulmonic Valve Name Value Normal PV Doppler PV Peak Gradient 8 mmHg PV Regurgitation Doppler CT Peak End Diastolic Velocity 87.78 cm/s Mitral Valve
--- NOTE | 2024-06-24 14:13 | PM.IMHP ---
H&P: HPI History of Present Illness Date/Time: 06/24/24 14:13 Chief Complaint: AMS and gait imbalance Narrative: 74 yo male with PMH of coronary artery disease status post CABG and valve replacement, hypertension, hyperlipidemia, who presented to the ER on account of AMS and gait disturbance, noted his last known well was on Friday 10:00 p.m. before bed and woke up the next morning at 5:30 a.m. the above symptoms. Denies any focal symptoms. Chest pain shortness are no nausea vomiting abdominal pain or dysuria. In the vital signs, labs were unremarkable. CT head, CTA head and neck unremarkable. EKG shows sinus bradycardia is degree AV block. Patient was admitted for further evaluation and care. Stated the symptoms has resolved to assess for occasional problems with reading. Patient was unable to do MRI today due to cardiac wires from cardiac surgery. Review of Systems Review of Systems: All other systems reviewed and negative except as noted in HPI above. [facility] Past Medical History Medical History (Updated 06/24/24 @ 14:27 by Salvatore Sorto MD) Allergies Breast mass in male Breast pain in male Cholecystitis Chronic sinusitis Gout Heart attack Heart murmur History of measles, mumps, or rubella Insomnia Thrombocytopenia, unspecified Surgical History Surgical History History of cholecystectomy History of prostate surgery 2009 Hx laparoscopic cholecystectomy 10/22/21 Hx of CABG Family History Family History Mother Acute myocardial infarction Father Lupus Sibling Lupus Social History Social History Smoking status: Never smoker Alcohol intake: never Do You Feel Safe in your Home?: Yes Lack of Transportation: No Lack of Food: Never True Current Housing: I Have Housing Concerned About Future Housing: No Difficulty Paying Gas/Electric Bills: No Difficulty Paying for Meds: No Currently Unemployed: No Education: High School Diploma/GED Difficulty w/ Childcare or Family Care: No Living arrangements: alone Spiritual care concerns: No Meds Home Medications and Allergies Home Medications Medication Instructions Recorded Confirmed Type aspirin 81 mg tablet,delayed 81 mg PO DAILY 08/27/19 06/23/24 History release (Aspir-) famotidine 20 mg tablet 20 mg PO DAILY 08/27/19 06/23/24 History loratadine 10 mg tablet (Claritin) 10 mg PO DAILY #90 tabs 07/12/20 06/23/24 Rx finasteride 5 mg tablet 5 mg PO DAILY 10/17/21 06/23/24 History azelastine 205.5 mcg (0.15 %) 2 spray intranasal DAILY #30 mL 07/24/23 06/24/24 Rx nasal spray (Astepro Allergy) amlodipine 5 mg tablet 5 mg PO DAILY 05/10/24 06/23/24 History atorvastatin 40 mg tablet 40 mg PO HS 05/10/24 06/23/24 History furosemide 20 mg tablet See Rx Instructions PO .COMPLEX 05/10/24 06/23/24 History metoprolol tartrate 25 mg tablet 25 mg PO BID 05/10/24 06/23/24 History sildenafil (pulm.hypertension) 20 20 mg PO DAILY PRN erectal 05/10/24 06/24/24 History mg tablet dysfunction clopidogrel 75 mg tablet 75 mg PO DAILY 06/24/24 06/24/24 History Allergies Allergy/AdvReac Type Severity Reaction Status Date / Time Penicillins Allergy Unknown Rash Verified 05/10/24 13:22 Vital Signs Vital Signs - 24 hr 06/23/24 17:59 06/23/24 18:26 06/23/24 18:26 Temperature 97.9 F 98.2 F Pulse Rate 57 L 52 L Respiratory Rate 16 18 Blood Pressure 158/86 H 144/71 H Pulse Oximetry 100 100 100 Oxygen Delivery Room Air Room Air Room Air 06/23/24 18:07 06/23/24 18:08 06/23/24 18:15 Temperature Pulse Rate 56 L 56 L Respiratory Rate 14 18 Blood Pressure 158/75 H Pulse Oximetry 100 100 99 Oxygen Delivery 06/23/24 18:49 06/23/24 19:00 06/23/24 19:01 Temperature Pulse Rate 54 L 55 L 58 L Respiratory Rate 12 11 L 13 Blood Pressure
[2024-06-24] MEDS: FINASTERIDE 5 MG TABLET PO (14:47)
[2024-06-24] MEDS: FAMOTIDINE 20 MG TABLET PO (14:47)
[2024-06-24] MEDS: METOPROLOL TARTRATE 25 MG TABLET PO (14:47)
[2024-06-24] MEDS: ASPIRIN 325 MG TABLET PO (14:48)
[2024-06-24] MEDS: PERFLUTREN LIPID MICROSPHERES 1.5 ML VIAL DILUTED TO 10 ML TOTAL VOLUME IV PUSH (15:38)
--- NOTE | 2024-06-24 15:39 | IVDEFINITY ---
Prior to administration of IV Definity the patient was educated on the risks and benefits of the imaging enhancing agent including potential adverse side effects. The patient verbalized understanding. Allergies were verified. No exclusion criteria were identified and at least one of the following inclusion criteria were met: 1) physician request, 2) patient technically difficult to image (per the [place] [employer] guidelines of two or more segments not discernable within the apical view), or 3) questionable left ventricular function. ?
--- NOTE | 2024-06-24 16:16 | PCSTNOTE ---
Please refer to the Bedside Swallow Evaluation in the EMR. Please note, silent aspiration cannot be ruled out at bedside.
[2024-06-24] MEDS: ATORVASTATIN 40 MG TABLET PO (20:27)
--- NOTE | 2024-06-24 20:28 | PC.NURSE ---
Pt was given first dose of Metoprolol at 1445. Dtp Operator holding 2100 dose and HR is 51 at the of assessment
[2024-06-25] VITALS: PULSE 48
[2024-06-25 04:20] VITALS: BP 142/69; PULSE 53; RESP 20; TEMP 36.2; O2SAT 99
[2024-06-25 08:00] VITALS: PULSE 59
[2024-06-25] MEDS: FAMOTIDINE 20 MG TABLET PO (09:06)
[2024-06-25] MEDS: FINASTERIDE 5 MG TABLET PO (09:06)
[2024-06-25] MEDS: ASPIRIN 325 MG TABLET PO (09:07)
[2024-06-25 09:11] VITALS: PULSE 75
[2024-06-25] MEDS: METOPROLOL TARTRATE 25 MG TABLET PO (09:11)
[2024-06-25 11:23] LABS: Hemoglobin A1C 5.6 % (<5.7)
[2024-06-25 12:00] VITALS: PULSE 54
[2024-06-25] MEDS: ENOXAPARIN 40 MG/0.4 ML SYRINGE SUB-Q (12:05)
--- NOTE | 2024-06-25 12:41 | PM.CNCAR ---
Assessment and Plan Assessment and plan (1) AMS (altered mental status): Code(s): R41.82 - Altered mental status, unspecified Status: Acute (2) CAD (coronary artery disease): Qualifiers: Coronary Disease-Associated Artery/Lesion type: unspecified vessel or lesion type [place] vs. transplanted heart: unspecified whether [place] or transplanted heart Associated angina: unspecified whether angina present Qualified Code(s): I25.10 - Atherosclerotic heart disease of [place] coronary artery without angina pectoris Code(s): I25.10 - Atherosclerotic heart disease of [place] coronary artery without angina pectoris Status: Acute Plan This is a 74-year-old man who entered the hospital with significant concerns regarding his mental status, confusion which appears to have workup of this is being pursued by the hospitalist. The patient very foolishly and dangerously as self discontinued his clopidogrel. Had a long conversation with the patient and his about this a decision. Indicated the to the patient that dual anti-platelet therapy is mandatory at this time. We had a discussion about alternative such as Brilinta and Effient. I am confident that the patient's neurological symptoms are not a consequence of his clopidogrel and having convinced him of this he is willing to go back on the drug. He has been off of it for a couple of days so and I will give him a 300 mg loading dose now and then he will resume 75 mg daily. There is at this point no additional cardiac reason that he needs to stay in the hospital. Johnny López MD [facility] History of Present Illness History of Present Illness Consult date/time: 06/25/24 12:41 Reason For Visit: Confusion/Altered Mental Status Narrative: This is a 74-year-old man who is known to my partner, Dr. Toledo who has multivessel coronary artery disease. I am seeing him at the request of the hospitalist because of problematic changes in his mental status, confusion, weakness and recent PCI with the patient having self discontinued anti-platelet therapy. Patient is comfortable at this time in the room visiting with his his mental status seems reasonable at this time. Said he was in his usual state of health when on Friday evening of this past changes in his mental state felt confused and just off in general. He was having a difficult time formulating thoughts. On Friday he was having difficulty reading things are making sense out of messages that he had on his cellphone. At our re them again later and be of the of his there was a completely different message. He had some changes with weakness of the lower memories and difficulty ambulating. He finally came into the hospital for evaluation of this on Friday. The patient had a recent percutaneous coronary stent procedure at [facility] done by Dr. Romano after which the patient was started on a clopidogrel. He this was a side effect of clopidogrel and stopped taking it as of Friday. The patient has a history of coronary artery disease with coronary bypass grafting in the remote past. Developed symptoms of exertional shortness of breath recently and had a decline in his left ventricular systolic function noted on echo. Because of this a follow-up catheterization was done I summer which demonstrates severe [place] vessel coronary disease with total the, high-grade stenosis of 90% at the ostium of a high OM/ramus branch that was of large caliber, severely diffusely disease small caliber right coronary artery. He was found to have a patent MAXIMINO graft to his LAD a patent vein graft to the right coronary artery and subsequent to that underwent CTA which demonstrated non opacification of saphenous vein graft to the radial in the OM which was therefore found to be occluded. PCI of the high-grade lesion at the ostium of his OM/ramus branch was recommended. This was done in a complex fashion by Dr. Bates on 06/11/2024. He rece
[2024-06-25] MEDS: CLOPIDOGREL BISULFATE 300 MG TABLET PO (13:33)
[2024-06-25 14:00] VITALS: BP 133/68; PULSE 57; RESP 20; TEMP 35.9; O2SAT 100
--- NOTE | 2024-06-25 14:06 | PM.DS ---
DS: Admitting Diagnosis Discharge Date 06/25/24 Admitting Diagnosis AMS DS: Discharge Diagnosis Discharge Diagnosis (1) TIA (transient ischemic attack): Code(s): G45.9 - Transient cerebral ischemic attack, unspecified Status: Acute DS: Summary Hospital Course Hospital Course: 74 yo male with PMH of coronary artery disease status post CABG and valve replacement, hypertension, hyperlipidemia, who presented to the ER on account of AMS and gait disturbance, noted his last known well was on Friday 10:00 p.m. before bed and woke up the next morning at 5:30 a.m. the above symptoms. Denies any focal symptoms. Chest pain shortness are no nausea vomiting abdominal pain or dysuria. In the vital signs, labs were unremarkable. CT head, CTA head and neck unremarkable. EKG shows sinus bradycardia is degree AV block. Patient was admitted for further evaluation and care. Stated the symptoms has resolved Patient was unable to do MRI today due to cardiac wires from cardiac surgery. Ct head more than 24 hrs after onset of symptoms did not show any acute changes. A1c 5.6. Patient suspected his symptoms were related to his plavix, and refused to take it yesterday. i counseled him today that that is not the case and also consulted cardiology who spoked with him and impressed on him to continue Plavix and Aspirin given that he had stents placed 2 weeks ago. Patient agreed to continue his Plavix after discussing with cardiology. At this time since symptoms have resolved, i discussed with patient that he will continue Plavix and Aspirin from now and follow up with neurology referrral in 1 week. Assessment and plan (1) CAD (coronary artery disease): Qualifiers: Coronary Disease-Associated Artery/Lesion type: unspecified vessel or lesion type [place] vs. transplanted heart: unspecified whether [place] or transplanted heart Associated angina: unspecified whether angina present Qualified Code(s): I25.10 - Atherosclerotic heart disease of [place] coronary artery without angina pectoris Code(s): I25.10 - Atherosclerotic heart disease of [place] coronary artery without angina pectoris Status: Acute (2) AMS (altered mental status): Code(s): R41.82 - Altered mental status, unspecified Status: Acute Plan Altered mental status with gait imbalance, resolved TIA Unable to do MRI due to cardiac wires from surgery Continue aspirin Plavix and Lipitor. PT/OT/speech repeat CT head is unremarkable Echo ef normal, grade I diastolic dysfunction, A1c 5.6 Last known well was 10:00 p.m. 06/22/24 Continue Aspirin and Plavix and lipitor F/u with Neurology referral CAD s/p CABG patient had stents 2 weeks ago initially suspected Plavix responsible for his symptoms above however he is back on it after cardiology spoke with him continue Aspirin, plavix and lipitor HLD continue home meds F/u with PCP in 3-5 days F/u with cardiology as instructed F/u with neurology referral in 1 week Time Spent with Patient Time attestation: Total time spent providing and/or coordinating discharge services: DS: Data Data Completed and Pending Labs on day of discharge: Labs from last 24 hours 06/23/24 18:24 Hemoglobin A1c 5.6 Discharge Plan Discharge Attending physician on discharge: Salvatore Sorto Consulting providers: Vinod Glover; Phuong Ornelas Discharging Clinician: Salvatore Sorto Anticipated Discharge Date/Time: 06/25/24 13:49 Patient Disposition: Home, Self-Care Activity: as tolerated Diet: as tolerated Patient Instructions: Antibiotic Form, Clopidogrel (By mouth) Stand Alone Forms: General Discharge Information Follow-up/Referrals: Phuong Ornelas APN-C [Advanced Practice Nurse] - (F/u with cardiology as instructed ) Vinod Glover MD [Physician] - (F/u with neurology in 1 week) Matt Carranza DO [Primary Care Provider] - (F/u with PCP in 3-5 days ) Anna
== END 2024-06-25 15:55 | disposition home or self-care (01) ==
LOC: ANHED 19:00 → ANH3MEDSUR 06-25 13:50
PROVIDERS: Admitting Provider Internal Medicine; Emergency Provider Emergency Medicine; PCP Internal Medicine; Visit Provider Internal Medicine
DX: G45.9 Transient cerebral ischemic attack, unspecified (principal); I25.10 Atherosclerotic heart disease of native coronary artery without angina pectoris; I10 Essential (primary) hypertension; E78.5 Hyperlipidemia, unspecified; I25.2 Old myocardial infarction; M10.9 Gout, unspecified; I08.1 Rheumatic disorders of both mitral and tricuspid valves; Z95.1 Presence of aortocoronary bypass graft; Z79.82 Long term (current) use of aspirin; Z79.02 Long term (current) use of antithrombotics/antiplatelets; Z95.4 Presence of other heart-valve replacement; Z20.822 Contact with and (suspected) exposure to COVID-19; Z79.899 Other long term (current) drug therapy
CPT/HCPCS: 36415; 70450; 70496; 70498; 71046; 80053; 81003; 83036; 85025; 85055; 85610; 85730; 87637; 92610; 93005; 96360; 96372; 96374; 97161; 99285; A9270; C8929; G0378; J1650; J7030; Q9957; Q9967

== ENCOUNTER 2025-01-27 14:18 | Emergency (ER) | payer MEDICARE, SELFPAY ==
[2025-01-27 14:28] VITALS: BP 129/72; PULSE 60; RESP 20; TEMP 36.7; O2SAT 99
--- OUTSIDE RECORDS SUMMARY | 2025-01-27 14:51 | XMS_ITS | Clinical Summary ---
Author Organization [facility] [address] Address [address] [place] [address] Care Team Providers Care Warehouse Helper Name Role Phone Matt Carranza DO Primary Care Provider [phone]- [phone] Dakotah Mcrae MD Unavailable [phone]- [phone] Donte Ghosh MD Unavailable Geoff Mesa MD Unavailable Allergies Active Allergy Reactions Criticality Noted Date Comments Penicillins Rash Medium 01/01/2016 Medications aspirin 81 mg tablet Take 1 tablet (81 mg total) by mouth daily. 30 tablet 1 8 07/14/20 27 Active loratadine (CLARITIN) 10 mg tablet Take 1 tablet (10 mg total) by mouth daily 0 Active finasteride (PROSCAR) 5 mg tablet Take 1 tablet (5 mg total) by mouth daily 1 Active sildenafiL, pulm.hypertension , (REVATIO) 20 mg tablet TAKE 1 TO 5 TABLETS BY MOUTH ONCE DAILY NEEDED 4 Active furosemide (LASIX) 20 mg tabletIndications :Bilateral lower extremity edema Take 1 tablet (20 mg total) by mouth daily as needed (swelling) 30 tablet 1 4 Active clopidogreL (PLAVIX) 75 mg tablet Take 1 tablet (75 mg total) by mouth daily 30 tablet 11 4 06/11/20 25 Active metoprolol tartrate (LOPRESSOR) 25 mg immediate release tablet Take 1 tablet (25 mg total) by mouth 2 (two) times a day 180 tablet 3 4 Active famotidine (PEPCID) 20 mg tabletIndications :Gastroesophageal reflux disease without esophagitis Take 1 tablet (20 mg total) by mouth daily 90 tablet 1 5 Active amLODIPine (NORVASC) 5 mg tabletIndications :Coronary artery disease of [place] artery of [place] heart with stable angina pectoris,Essentia l hypertension Take 1 tablet by mouth once daily 30 tablet 11 5 Active atorvastatin (LIPITOR) 40 mg tabletIndications :Dyslipidemia, goal LDL below 70 Take 1 tablet by mouth once daily 90 tablet 3 5 Active Active Problems Problem Noted Date Diagnosed Date Cardiomyopathy, ischemic 03/19/2024 Bilateral lower extremity edema 12/27/2022 LBBB (left bundle branch block) 10/30/2021 History of COVID-19 06/08/2021 Essential hypertension 02/11/2020 Hyperlipidemia LDL goal <70 01/27/2019 H/O aortic valve replacement 01/27/2019 Gastroesophageal reflux disease without esophagi tis 01/27/2019 Coronary artery disease of n ative heart with stable angina pectoris 05/28/2018 Overview (05/29/2018): Added automatically from request for surgery [id number] Encounters Date Type Department Care Team Description 12/08/2024 Documentation [facility] Surgery [address] [place] [address] [address] [place] [address] Brooke Martinez 11/26/2024 1:00 PM TEACHING FELLOW Ancillary Procedure [facility] Medical Group Cardiology at [address] [place] [phone] H/O aortic valve replacement; Cardiomyopathy, ischemic 11/26/2024 8:45 AM TEACHING FELLOW Office Visit [facility] Medical Group Cardiology at [address] [phone] Donte Ghosh MD Coronary artery disease of [place] artery of [place] heart with stable angina pectoris (Primary Dx); H/O aortic valve replacement; Cardiomyopathy, ischemic; Essential hypertension; Hyperlipidemia LDL goal <70 11/22/2024 Documentation [facility] Surgery [address] [facility] [address] [place] [address] Tammie Baird, ELIZABETH Reschedule CTS appt from Last 3 Months Surgical History Surgery Date Site/Laterality Comments PROSTATE SURGERY VASECTOMY Medical History Medical History Date Comments Arthritis Coronary artery disease Essential hypertension 02/11/2020 Cataract Family History Medical History Relation Name Comments Diabetes Cousin Glaucoma Mother Arthritis Other Cancer Other Funmi syndrome Other Heart disease Other Macular degeneration Neg Hx Thyroid disease Neg Hx Relation Name Status Comments Cousin Alive Mother Other Social History Tobacco Use Types Packs/Day Years Used Date Smoking Tobacco: Never Passive Smoke Exposure: Never Smokeless Tobacco: Never Alcohol Use Standard Drinks/Week Comments No 0 (1 standard drink = 0.6 oz pur e alcohol) Personal Safety Answer Date Recorded Have you ever been in or are you currently in a harmful physical or emotional relationship or is someone making you feel afraid or unsafe? Denies 06/11/2024 Sex and Gender Information Value Date Recorded Sex Assigned at Not on file Legal Sex Male 2:51 PM TEACHING FELLOW Gender Identity Male 11/13/2021 11:51 AM TEACHING FELLOW Sexual Orientation Straight 11/13/2021 11 :51 AM TEACHING FELLOW Obstetrics History Last Filed Vital Signs Vital Sign Reading Time Taken Comments Blood Pressure 122/76 11/26/2024 8:42 AM TEACHING FELLOW Pulse 62 11/26/2024 8:42 AM TEACHING FELLOW Temperature -13.4 C (7.8 F) 06/11/2024 11:07 AM CDT Respiratory Rate 17 06/11/2024 6:00 PM CDT Oxygen Saturation 99% 11/26/2024 8:42 AM TEACHING FELLOW Inhaled Oxygen Concentration - - Weight 99.8 kg (220 lb) 11/26/2024 8:42 AM TEACHING FELLOW Height 188 cm (6' 2 ) 11/26/2024 8:42 AM TEACHING FELLOW Body Mass Index 28.25 11/26/2024 8:42 AM TEACHING FELLOW Plan of Treatment Health Maintenance Due Date Last Done Comments Colon Cancer Screening-Colonoscopy 1950 Depression Screening 1950 Hepatitis C Screening 1950 Hepatitis B Screening 1967 Zoster Vaccine (1 of 2) 1999 Well Visit 65+ 2014 Influenza Vaccine (#1) 2024 8, 07/23/2017, 09/28/2016, Additional history exists Fall Risk Assessment 06/11/2025 06/11/2024, 03/24/20 20 DTaP/Tdap/Td Vaccine (3 - Td or Tdap) 12/31/2025 01/01/2016, 08/03/2013 Pneumococcal vaccine 65+ Completed 09/28/2016, 07/21 Medical Devices Implanted Type Area Pressing Department Supervisor Device Identifier Shelf Expiration Date Model / Serial / Lot Ugarte Lifesciences [id number] BrittaneyPato s Perimount Magna Ease Thermafix 25mm - [id number] - [id number] Implanted:Qty: 1 on 06/01/2018 by Imer Davis MD at [facility] N/A: Heart [employer] 03/06/2022 [id number] / [id number] / [employer] Device Vascular Closure Femoral Artery Bioabsorbable Dual Method Vascade 6-7fr Collagen [id number] - [id number] Implanted:Qty: 1 on 04/15/2024 by Faibo Romano MD at [facility] [employer] 12/16/2025 [id number] / / [id number] Medtronic Card Vasc Surgery 4.0 X 18mm Ori [place] Rx Coronary Stent [id number] - [id number] Implanted:Qty: 1 on 06/11/2024 by Fabio Romano MD at [facility] Medtronic Card Vasc Surgery 01/20/2027 [id number] / / [id number] Procedures Procedure Name Priority Date/Time Associated Diagnosis Comments TRANSTHORACIC ECHO (TTE) COMPLETE W DOPPLER/CF WO CONTRAST Routine 11/26/2024 1:43 PM TEACHING FELLOW H/O aortic valve replacement Cardiomyopathy, ischemic from Last 3 Months Results * TRANSTHORACIC ECHO (TTE) COMPLETE W DOPPLER/CF WO CONTRAST (11/26/2024 1:43 PM TEACHING FELLOW) LV EF 60-65 % CONS SCIMAGE Anatomical Region Laterality Modality Ultrasound 11/26/2024 12:5 9 PM TEACHING FELLOW Narrative 11/26/2024 4:18 PM TEACHING FELLOW [facility] Medical Group Cardiology [address], [address], [place] [address] P:[phone] P:[phone] Echocardiographic Report Patient Name: VAIBHAV DANIELS E : 1950 Study Date: 11/26/2024 12:59:17 PM Gender: M Tech: Location: [facility] Ref Provider: DONTE GHOSH Height(Cm): 188 BSA: 2.28 Weight(Kg): 99.8 Heart Rate: 59 BP: 122 / 76 Quality: Good Order Provider: DONTE GHOSH PROCEDURES: Echocardiographic Report: Transthoracic echocardiogram with complete 2D, M-Mode, and color Doppler examination. With Strain Analysis. INDICATIONS: Aortic Valve Replacement and I25.5 Ischemic cardiomyopathy. MEASUREMENTS: 2D/MM Value Range Doppler Value Range EF Mod BP 55 % [ 52 - 72 ] JAD Vmax 1.17 cm2 [ 2.00 - 4.00 ] EF Teich MM 53 % [ 52 - 72 ] AV Mean PG 31 mmHg Estimated EF 60-65 % AV Peak Dima 3.64 m/s [ 1.00 - 1.70 ] LVIDd 2D 4.48 cm [ 4.20 - 5.80 ] AV Peak PG 53 mmHg LVIDd MM 5.09 cm [ 4.20 - 5.80 ] AV VTI 76.25 cm LVIDs 2D 2.84 cm [ 2.50 - 4.00 ] LVOT Diam 2.00 cm [ 1.70 - 2.10 ] LVIDs MM 3.70 cm [ 2.50 - 4.00 ] LVOT Peak Dima 1.35 m/s [ 0.70 - 1.10 ] LVPWd 2D 1.26 cm [ 0.60 - 1.00 ] LVOT VTI 30.87 cm LVPWd MM 1.20 cm [ 0.60 - 1.00 ] MV E Peak Dima 0.89 m/s [ 0.60 - 1.30 ] IVSd 2D 1.51 cm [ 0.60 - 1.00 ] MV A Peak Dima 1.06 m/s [ 1.00 - 1.20 ] IVSd MM 1.20 cm [ 0.60 - 1.00 ] MV Decel Time 244 msec [ 104 - 258 ] LA Dimension MM 4.48 cm [ 3.00 - 4.00 ] PV Peak Dima 1.34 m/s [ 0.40 - 0.80 ] AoR Diam MM 2.34 cm [ 3.10 - 3.70 ] TR Peak Dima 2.42 m/s [ 1.00 - 2.80 ] LA Volume Index 32 cc/m2 [ 16 - 34 ] TR Peak PG 23 mmHg RVSP 31.00 mmHg [ 10.00 - 36.00 ] E` 0.08 m/s E/E` 12 2D/MM Value Range Doppler Value Range - FINDINGS: Interpretation Site: Exam was interpreted at [facility]. Left Ventricle: Normal left ventricular systolic function. No focal wall motion abnormalities. Normal left ventricular size. Moderate concentric left ventricular hypertrophy. Impaired diastolic relaxation Grade I. Ejection fraction is measured at 55 %. Ejection Fraction is visually estimated to be 60-65 %. Global Longitudinal Strain is -15 %. GLS is abnormal. Right Ventricle: Normal right ventricular size. Normal right ventricular systolic function. Left Atrium: There is mild enlargement of left atrium. Right Atrium: The right atrium is normal in size. Atrial Septum: Normal atrial septum. Mitral Valve: Mitral valve leaflets appear mildly thickened. Mild mitral valve regurgitation. There is no hemodynamically significant mitral stenosis by Doppler. Aortic Valve: Mild to moderate aortic stenosis. Mean gradient of 31.0 mmHg. Valve area of 1.2 cm2. Trace aortic valve regurgitation. Gradients abnormal for valve type and size. The Bioprosthetic aortic valve appears undersized. Tricuspid Valve: Normal appearance of the tricuspid valve. Normal right ventricular systolic pressure. Estimated peak RVSP is 31 mmHg. Mild tricuspid regurgitation. Pulmonic Valve: Normal appearance of the pulmonic valve. No pulmonic stenosis. Mild pulmonic regurgitation. Pericardium: Normal pericardium with no significant pericardial effusion. Aorta: Normal aortic root. IVC: Normal size and normal respiratory collapse consistent with normal right atrial pressure (<5 mmHg). CONCLUSIONS: Normal left ventricular systolic function. No focal wall motion abnormalities. Normal left ventricular size. Moderate concentric left ventricular hypertrophy. Impaired diastolic relaxation Grade I. Ejection fraction is measured at 55 %. Ejection Fraction is visually estimated to be 60-65 %. Global Longitudinal Strain is -15 %. GLS is abnormal. There is mild enlargement of left atrium. Mitral valve leaflets appear mildly thickened. Mild mitral valve regurgitation. Mild to moderate aortic stenosis. Mean gradient of 31.0 mmHg. Valve area of 1.2 cm2. Trace aortic valve regurgitation. Gradients abnormal for valve type and size. The Bioprosthetic aortic valve appears undersized. Mild tricuspid regurgitation. Mild pulmonic regurgitation. Normal sinus rhythm. Electronically Signed By: Donte Ghosh MD 11/26/2024 4:16:49 PM TEACHING FELLOW Procedure Note Donte Ghosh MD - 11/26/2024 [facility] Medical Group Cardiology [facility], [address], [place] [address] P:[phone] P:[phone] Echocardiographic Report Patient Name: VAIBHAV DANIELS E : 1950 Study Date: 11/26/2024 12:59:17 PM Gender: M Tech: Location: [facility] Ref Provider: DONTE GHOSH Height(Cm): 188 BSA: 2.28 Weight(Kg): 99.8 Heart Rate: 59 BP: 122 / 76 Quality: Good Order Provider: DONTE GHOSH PROCEDURES: Echocardiographic Report: Transthoracic echocardiogram with complete 2D, M-Mode, and color Dopplerexamination. With Strain Analysis. INDICATIONS: Aortic Valve Replacement and I25.5 Ischemic cardiomyopathy. MEASUREMENTS: 2D/MM Value Range Doppler ValueRange EF Mod BP 55 % [ 52 - 72 ] JAD Vmax 1.17cm2 [ 2.00 - 4.00 ] EF Teich MM 53 % [ 52 - 72 ] AV Mean PG 31mmHg Estimated EF 60-65 % AV Peak Dima 3.64m/s [ 1.00 - 1.70 ] LVIDd 2D 4.48 cm [ 4.20 - 5.80 ] AV Peak PG 53mmHg LVIDd MM 5.09 cm [ 4.20 - 5.80 ] AV VTI 76.25cm LVIDs 2D 2.84 cm [ 2.50 - 4.00 ] LVOT Diam 2.00 cm[ 1.70 - 2.10 ] LVIDs MM 3.70 cm [ 2.50 - 4.00 ] LVOT Peak Dima 1.35m/s [ 0.70 - 1.10 ] LVPWd 2D 1.26 cm [ 0.60 - 1.00 ] LVOT VTI 30.87cm LVPWd MM 1.20 cm [ 0.60 - 1.00 ] MV E Peak Dima 0.89m/s [ 0.60 - 1.30 ] IVSd 2D 1.51 cm [ 0.60 - 1.00 ] MV A Peak Dima 1.06m/s [ 1.00 - 1.20 ] IVSd MM 1.20 cm [ 0.60 - 1.00 ] MV Decel Time 244msec [ 104 - 258 ] LA Dimension MM 4.48 cm [ 3.00 - 4.00 ] PV Peak Dima 1.34m/s [ 0.40 - 0.80 ] AoR Diam MM 2.34 cm [ 3.10 - 3.70 ] TR Peak Dima 2.42m/s [ 1.00 - 2.80 ] LA Volume Index 32 cc/m2 [ 16 - 34 ] TR Peak PG 23mmHg RVSP 31.00 mmHg [ 10.00 - 36.00 ] E` 0.08 m/s E/E` 12 2D/MM Value Range Doppler ValueRange - FINDINGS: Interpretation Site: Exam was interpreted at [facility]. Left Ventricle: Normal left ventricular systolic function. No focal wall motionabnormalities. Normal left ventricular size. Moderate concentric left ventricular hypertrophy.Impaired diastolic relaxation Grade I. Ejection fraction is measured at 55 %.Ejection Fraction is visually estimated to be 60-65 %. Global Longitudinal Strain is -15 %. GLSis abnormal. Right Ventricle: Normal right ventricular size. Normal right ventricular systolicfunction. Left Atrium: There is mild enlargement of left atrium. Right Atrium: The right atrium is normal in size. Atrial Septum: Normal atrial septum. Mitral Valve: Mitral valve leaflets appear mildly thickened. Mild mitral valveregurgitation. There is no hemodynamically significant mitral stenosis by Doppler. Aortic Valve: Mild to moderate aortic stenosis. Mean gradient of 31.0 mmHg. Valve areaof 1.2 cm2. Trace aortic valve regurgitation. Gradients abnormal for valve type andsize. The Bioprosthetic aortic valve appears undersized. Tricuspid Valve: Normal appearance of the tricuspid valve. Normal right ventricularsystolic pressure. Estimated peak RVSP is 31 mmHg. Mild tricuspid regurgitation. Pulmonic Valve: Normal appearance of the pulmonic valve. No pulmonic stenosis. Mildpulmonic regurgitation. Pericardium: Normal pericardium with no significant pericardial effusion. Aorta: Normal aortic root. IVC: Normal size and normal respiratory collapse consistent with normal rightatrial pressure (<5 mmHg). CONCLUSIONS: Normal left ventricular systolic function. No focal wall motionabnormalities. Normal left ventricular size. Moderate concentric left ventricular hypertrophy.Impaired diastolic relaxation Grade I. Ejection fraction is measured at 55 %.Ejection Fraction is visually estimated to be 60-65 %. Global Longitudinal Strain is -15 %. GLSis abnormal. There is mild enlargement of left atrium. Mitral valve leaflets appear mildly thickened. Mild mitral valveregurgitation. Mild to moderate aortic stenosis. Mean gradient of 31.0 mmHg. Valve areaof 1.2 cm2. Trace aortic valve regurgitation. Gradients abnormal for valve type andsize. The Bioprosthetic aortic valve appears undersized. Mild tricuspid regurgitation. Mild pulmonic regurgitation. Normal sinus rhythm. Electronically Signed By: Donte Ghosh MD 11/26/2024 4:16:49 PM TEACHING FELLOW us Donte Ghosh MD CV ECHO PROCEDURES Final Result from Last 3 Months Insurance [employer] MEDICARE GOLD [employer] MEDICARE GOLD Advance Directives For more information, please contact: [phone] * Full Code (Latest Code Status on File) Date Activated Date Inactivated Comments 05/28/2018 5:26 PM 06/09/2018 4:26 PM Care Teams Warehouse Helper Relationship Specialty Start Date End Date Matt Carranza DO PCP - General Internal Medicine 05/20/18 Dakotah Mcrae MD [facility] [address] [facility] [place] [address] Consulting Physician Interventional Cardiology 06/05/18 Donte Ghosh MD [address] [facility] [address] [place] [address] Consulting Physician Cardiology 12/01/23 [place] [address] [address] ADULT CARDIO, [facility] [address] [place] [address] Surgeon Cardiothoracic Surgery 12/01/23
--- OUTSIDE RECORDS SUMMARY | 2025-01-27 14:51 | XMS_ITS | Referral Summary ---
Author Organization [facility] [address] Address [address] [place] [address] Care Team Providers Care Exercise Physiologist Certified Name Role Phone Matt Carranza DO Primary Care Provider [phone]- [phone] Dakotah Mcrae MD Unavailable [phone]- [phone] Donte Ghosh MD Unavailable [phone] Geoff Mesa MD Unavailable Encounters Date Type Department Care Team Description 12/08/2024 Documentation [facility] Surgery [address] [place] [address] [address] [place] [address] Brooke Martinez 11/26/2024 1:00 PM CHILD WELFARE CONSULTANT Ancillary Procedure [facility] Medical Group Cardiology at [address] [place] [phone] H/O aortic valve replacement; Cardiomyopathy, ischemic 11/26/2024 8:45 AM CHILD WELFARE CONSULTANT Office Visit [facility] Medical Group Cardiology at [address] [place] [address] Donte Ghosh MD Coronary artery disease of [place] artery of [place] heart with stable angina pectoris (Primary Dx); H/O aortic valve replacement; Cardiomyopathy, ischemic; Essential hypertension; Hyperlipidemia LDL goal <70 11/22/2024 Documentation [facility] Surgery [address] [place] [address] [address] [place] [address] Tammie Baird NP Reschedule CTS appt from Last 3 Months Allergies Active Allergy Reactions Criticality Noted Date [...] 5 mg tabletIndications :Coronary artery disease of [place] artery of [place] heart with stable angina pectoris,Essentia l hypertension [...] (05/29/2018): Added automatically from request for surgery [id number] Social History Tobacco Use Types Packs/Day Years [...] on file Legal Sex Male 2:51 PM CHILD WELFARE CONSULTANT Gender Identity Male 11/13/2021 11:51 AM CHILD WELFARE CONSULTANT Sexual Orientation Straight 11/13/2021 11 :51 AM CHILD WELFARE CONSULTANT Last Filed Vital Signs Vital Sign Reading Time Taken Comments Blood Pressure 122/76 11/26/2024 8:42 AM CHILD WELFARE CONSULTANT Pulse 62 11/26/2024 8:42 AM CHILD WELFARE CONSULTANT Temperature -13.4 C (7.8 F) 06/11/2024 11:07 AM CDT Respiratory Rate 17 06/11/2024 6:00 PM CDT Oxygen Saturation 99% 11/26/2024 8:42 AM CHILD WELFARE CONSULTANT Inhaled Oxygen Concentration - - Weight 99.8 kg (220 lb) 11/26/2024 8:42 AM CHILD WELFARE CONSULTANT Height 188 cm (6' 2 ) 11/26/2024 8:42 AM CHILD WELFARE CONSULTANT Body Mass Index 28.25 11/26/2024 8:42 AM CHILD WELFARE CONSULTANT Plan of Treatment Not on file Medical Devices Implanted Type Area Fabrication Specialist Device Identifier Shelf Expiration Date Model / Serial / Lot U[employer] [id number] BrittaneyPato s Perimount Magna Ease Thermafix 25mm - [id number] - [id number] Implanted:Qty: 1 on 06/01/2018 by Imer Davis MD at [facility] N/A: Heart [employer] 03/06/2022 [id number] / [id number] / [employer] Device Vascular Closure Femoral Artery Bioabsorbable Dual Method Vascade 6-7fr Collagen [id number] - [id number] Implanted:Qty: 1 on 04/15/2024 by Fabio Romano MD at [facility] [employer] 12/16/2025 [id number] / / [id number] Medtronic Card Vas Surgery 4.0 X 18mm Ori [place] Rx Coronary Stent [id number] - [id number] Implanted:Qty: 1 on 06/11/2024 by Fabio Romano MD at [facility] Medtronic Card Vasc Surgery 01/20/2027 [id number] / / [id number] Procedures Procedure Name Priority Date/Time Associated Diagnosis Comments TRANSTHORACIC ECHO (TTE) COMPLETE W DOPPLER/CF WO CONTRAST Routine 11/26/2024 1:43 PM CHILD WELFARE CONSULTANT H/O aortic valve replacement Cardiomyopathy, ischemic from Last 3 Months Results * TRANSTHORACIC ECHO (TTE) COMPLETE W DOPPLER/CF WO CONTRAST (11/26/2024 1:43 PM CHILD WELFARE CONSULTANT) LV EF 60-65 % CONS SCIMAGE Anatomical Region Laterality Modality Ultrasound 11/26/2024 12:5 9 PM CHILD WELFARE CONSULTANT Narrative 11/26/2024 4:18 PM CHILD WELFARE CONSULTANT [facility] Medical Group Cardiology [address], [address], [place] [address] [phone] P:[phone] Echocardiographic Report Patient Name: VAIBHAV DANIELS E [...] FINDINGS: Interpretation Site: Exam was interpreted at [facility] [place]. Left Ventricle: Normal left ventricular systolic function. [...] By: Donte Ghosh MD 11/26/2024 4:16:49 PM CHILD WELFARE CONSULTANT Procedure Note Donte Ghosh MD - 11/26/2024 [facility] Medical Group Cardiology [address], [address], [place] [address] [phone] P:[phone] Echocardiographic Report Patient Name: VAIBHAV DANIELS E [...] FINDINGS: Interpretation Site: Exam was interpreted at [facility]. Left Ventricle: Normal left ventricular systolic function. [...] By: Donte Ghosh MD 11/26/2024 4:16:49 PM CHILD WELFARE CONSULTANT Donte Ghosh MD CV ECHO PROCEDURES Final Result from Last 3 Months Insurance [facility] MEDIC[employer] GOLD [facility] [employer] GOLD Advance Directives For more information, please contact: [phone] * Full Code (Latest Code Status on File) Date Activated Date Inactivated Comments 05/28/2018 5:26 PM 06/09/2018 4:26 PM Care Teams Exercise Physiologist Certified Relationship Specialty Start Date End Date Matt Carranza DO PCP - General Internal Medicine 05/20/18 Dakotah Mcrae MD [address] [address], [place] [address] Consulting Physician Interventional Cardiology 06/05/18 Donte Ghosh MD [address] [facility] [address] [place] [address] Consulting Physician Cardiology 12/01/23 [place] [address] ADULT CARDIO, [facility] [address] [place] [address] Surgeon Cardiothoracic Surgery 12/01/23
--- OUTSIDE RECORDS SUMMARY | 2025-01-27 14:51 | XMS_ITS | Clinical Summary ---
Author Organization [facility] Address [address] [place] [address] Phone Care Team Providers Care Bottle Line Worker Name Role Phone FiorellaMatt roberts Primary Care Provider Allergies Active Allergy Reactions Criticality Noted Date Comments Penicillins Rash 01/01/2016 Medications Loratadine (CLARITIN) 10 MG Capsule Take by mouth. Acti ve prochlorperazin e (COMPAZINE) 10 MG Tablet Take 1 Tab by mouth every 6 hours as needed for Nausea. 10 Tab 0 6 Active Additional Information Patient not taking.Reported on 12/01/2017 fluticasone (FLONASE) 50 MCG/ACT Suspension 1 [place] by Nasal route daily. Use in each nostril as directed. 3 Bottle 3 7 Active pentoxifylline (TRENTAL) 400 MG Tablet Controlled Release 7 Active Immunizations Immunization Administration Dates Next Due TDAP Vaccine 01/01/2016 Family History Medical History Relation Name Comments Lupus Father Relation Name Status Comments Father Mother Alive Social History Tobacco Use Types Packs/Day Years Used Date Smoking Tobacco: Never Smokeless Tobacco: Never Alcohol Use Standard Drinks/Week Comments No 0 (1 standard drink = 0.6 oz pur e alcohol) Sex and Gender Information Value Date Recorded Sex Assigned at Not on file Legal Sex Male 10:50 PM CDT Gender Identity Not on file Sexual Orientation Not on file Last Filed Vital Signs Vital Sign Reading Time Taken Comments Blood Pressure 143/79 03/05/2018 10:03 PM CDT Pulse 62 03/05/2018 10:03 PM CDT Temperature 36.5 C (97.7 F) 03/05/2018 9:06 PM CDT Respiratory Rate 18 03/05/2018 10:03 PM CDT Oxygen Saturation 98% 03/05/2018 10:03 PM CDT Inhaled Oxygen Concentration - - Weight 93 kg (205 lb) 03/05/2018 9:06 PM CDT Height 188 cm (6' 2 ) 03/05/2018 9:06 PM CDT Body Mass Index 26.32 03/05/2018 9:06 PM CDT Plan of Treatment Health Maintenance Due Date Last Done Comments Hepatitis C Virus (HCV) Screening 1949 Colonoscopy 1994 Colorectal Cancer Screening 1994 Cologuard 1999 Immunochemical Fecal Occult Blood 1999 Zoster Immunization (1 of 2) 1999 Respiratory Syncytial Virus (RSV) Immunization (Adult) (1 - 1-dose 75+ series) 2024 Influenza Immunization (#1) 06/20/202401/2017, 09/28/2016, 08/14/2015, Additional history exists SARS-COV-2 Immunization ( season) 2024 DTaP/Tdap/Td Immunization Discontinued 01/01/2016, Pneumococcal Immunization (50+ years) Completed 09/28/2016, 08/14/2015 Pneumococcal Immunization Combined Discontinued 09/28/2016, 08/14/2015 Hepatitis B Immunization Aged Out No longer eligible based on patient's age to complete this topic Meningococcal Immunization (ACWY) Aged Out No longer eligible based on patient's age to complete this topic Rotavirus Immunization Aged Out No lo nger eligible based on patient's age to complete this topic Insurance MEDICARE AETNA SENIOR SUPPLEMENTAL Care Teams Bottle Line Worker Relationship Specialty Start Date End Date Matt Carranza DO [address] [place] [address] [place] [facility] [address] PCP - General Internal Medicine 01/01/16
--- OUTSIDE RECORDS SUMMARY | 2025-01-27 14:51 | XMS_ITS | Clinical Summary ---
Author Organization [facility] Address [address] [place] [address] Care Team Providers Care Warper Creeler Name Role Phone Matt Carranza Primary Care Provider Allergies Active Allergy Reactions Criticality Noted Date Comments Penicillins Rash Medium 01/01/2016 Medications aspirin (ECOTRIN EC) 81 mg Tablet, Delayed Release (E.C.) Take 81 mg by mouth daily. 06/10/2018 Active finasteride (PROSCAR) 5 mg tablet 08/21/2021 Active atorvastatin (LIPITOR) 40 mg tablet Take 40 mg by mouth daily. 12/31/2022 Active famotidine (PEPCID) 20 mg tablet Take 20 mg by mouth 2 times daily. 04/11/2023 Active metoprolol tartrate (LOPRESSOR) 25 mg tablet Take 12.5 mg by mouth 2 times daily. 05/28/2023 Active Vitamin A-Vit C-Vit E-Zinc-Cu Tablet Take by mouth. Active Active Problems No known active problems Encounters Date Type Department Care Team Description 11/11/2024 External Device Data STL ABSTRACTION Provider, Abstract from Last 3 Months Family History Medical History Relation Name Comments Skin Cancer Mother SLE Sister Relation Name Status Comments Daughter Alive Father Mother Alive Sister Alive Son Alive Social History Tobacco Use Types Packs/Day Years Used Date Smoking Tobacco: Never Smokeless Tobacco: Never Tobacco Cessation:Counseling Given: Not Answered Alcohol Use Standard Drinks/Week Comments Never 0 (1 standard drink = 0.6 oz pur e alcohol) Sex and Gender Information Value Date Recorded Sex Assigned at Not on file Legal Sex Male 9:02 AM CDT Gender Identity Not on file Sexual Orientation Not on file Last Filed Vital Signs Vital Sign Reading Time Taken Comments Blood Pressure 144/79 09/05/2023 11:55 AM FLAVORER Pulse 58 09/05/2023 11:52 AM FLAVORER Temperature 36.2 C (97.2 F) 09/05/2023 11:52 AM FLAVORER Respiratory Rate 10 09/05/2023 11:52 AM FLAVORER Oxygen Saturation 100% 09/05/2023 11:52 AM FLAVORER Inhaled Oxygen Concentration - - Weight 99.3 kg (219 lb) 09/05/2023 11:52 AM FLAVORER Height 188 cm (6' 2 ) 08/21/2023 2:47 PM CDT Body Mass Index 28.12 08/21/2023 2:47 PM CDT Plan of Treatment Health Maintenance Due Date Last Done Comments PNEUMOCOCCAL VACCINE 50+ YEARS (1 of 2 - PCV) 04/30/19 68 FIT-DNA Q 3 years 1994 FIT/FOBT Q 1 year 1994 Flex Sig/CT Colonography Q 5 years 1994 ZOSTER VACCINE (1 of 2) 1999 RSV VACCINE (60+ or ) (1 - 1-dose 75+ series) 2024 INFLUENZA VACCINE (#1) 2024 DTAP/TDAP/TD VACCINES (2 - Td or Tdap) 12/31/2025 COLORECTAL SCREENING 07/05/2029 07/05/2019 Colorectal Cancer Screening 07/05/2029 Insurance [facility] MEDICARE PART A AND B Care Teams Warper Creeler Relationship Specialty Start Date End Date Matt Carranaz DO [address] [address] PCP - General Internal Medicine 05/19/23
--- NOTE | 2025-01-27 15:15 | ED_ITS ---
HPI - Male Genitourinary General Chief complaint: Urogenital-Male Stated complaint: groin pain Time Seen by Provider: 01/27/25 14:35 Source: patient, RN notes reviewed and old records reviewed Mode of arrival: ambulatory Limitations: no limitations History of Present Illness HPI Narrative: 74 year old male who presents to express care with complaints of having left groin discomfort this week and today he started having pain down into left testicle.Patient reports that he called the urology office and his PCP office and was told to go to urgent care. Patient reports that he called his urology office earlier in the week to get appointment and was told no appointment available in [place] office and was scheduled in [place] office with associate on Friday. Patient reports that the pain in the testicle does decrease after he urinates. Patient reports past history of kidney stone and also history TURP surgery MD Complaint: other (left groin pain this week and today has had pain to the left testicle) Onset (ago): week(s) (one week left groin pain with pain to left testicle today) Location: left testicle and abdomen (left groin) Severity scale (1-10): 7 Associated symptoms: Reports other (some radiation to left testicle today and some feelings of difficulty voiding) Related Data Home Medications ?Medication ?Instructions ?Recorded ?Confirmed ?Last Taken ?Type aspirin 81 mg tablet,delayed 81 mg PO DAILY 08/27/19 10/04/24 06/23/24 09:00 History release (Aspir-) famotidine 20 mg tablet 20 mg PO DAILY 08/27/19 10/04/24 06/23/24 09:00 History finasteride 5 mg tablet 5 mg PO DAILY 10/17/21 10/04/24 06/23/24 09:00 History amlodipine 5 mg tablet 5 mg PO DAILY 05/10/24 10/04/24 06/23/24 09:00 History atorvastatin 40 mg tablet 40 mg PO HS 05/10/24 10/04/24 06/22/24 21:00 History metoprolol tartrate 25 mg tablet 25 mg PO BID 05/10/24 10/04/24 06/23/24 09:00 History sildenafil (pulm.hypertension) 20 20 mg PO DAILY PRN erectal 05/10/24 10/04/24 Unknown History mg tablet dysfunction clopidogrel 75 mg tablet 75 mg PO DAILY 06/24/24 10/04/24 06/23/24 09:00 History Allergies Allergy/AdvReac Type Severity Reaction Status Date / Time Penicillins Allergy Unknown Rash Verified 01/27/25 16:47 Review of Systems Review of Systems: CONSTITUTIONAL: Denies fever, chills, or sweats. CARDIOVASCULAR: Denies chest pain, palpitations, or edema. RESPIRATORY: Denies cough or dyspnea. GASTROINTESTINAL: Denies abdominal pain, nausea, vomiting, or diarrhea. GENITOURINARY: Reports no dysuria, frequency, urgency. Denies flank pain or hematuria. Reports left groin pain for one week with increased pain today with some pain to left testicle SKIN: Denies rash or itching. MUSCULOSKELETAL: Denies back pain or myalgia. Denies CVA tenderness NEUROLOGIC: Denies headache All systems reviewed & are unremarkable except as noted in HPI and below PMFSH Past Medical History Medical History (Updated 01/28/25 @ 10:05 by Penny Calero NP) Kidney stone Heart attack Breast pain in male Breast mass in male Chronic sinusitis Cholecystitis Thrombocytopenia, unspecified Allergies Heart murmur History of measles, mumps, or rubella Insomnia Gout Surgical History Surgical History History of cholecystectomy Hx laparoscopic cholecystectomy 10/22/21 History of prostate surgery 2010 Hx of CABG Family History Family History Mother Acute myocardial infarction Father Lupus Sibling Lupus Social History Social History Smoking status: Never smoker Alcohol intake: never Do You Feel Safe in your Home?: Yes Lack of Transportation: No Lack of Food: Never True Current Housing: I Have Housing Concerned About Future Housing: No Difficulty Paying Gas/Electric Bills: No Difficulty Paying for Meds: No Currently Unemployed: No Education: High School Diploma/GED Difficulty w/ Childcare or Family Care: No Living arrangements: alone Spiritual care concerns: No Comments At time of signature, agree with nursing past medical, surgical, social and family history. There is no relevant family history pertinent to the presenting complaint Exam Narrative: GENERAL: Well-appearing, well-nourished, and in some acute distress related to left groin pain with some intermittent pain left testicle HEAD: Normocephalic, atraumatic. NECK: Supple.no lymphadenopathy CHEST: Clear to auscultation. No respiratory distress. no cough or congestion SAO2 99% on room air HEART: Regular rate and rhythm. No murmur heard. Normal peripheral pulses. ABDOMEN: Soft, tender left groin area, nondistended, normal active bowel sounds. No CVA tenderness radiation of pain to left testicle today with no redness or swelling to testes. EXTREMITIES: Normal range of motion. No edema. SKIN: Warm, dry, no rash. NEURO: No focal deficits. Alert and oriented x3. Course Course Emergency Course: Patient is aware of diagnosis, understands and agrees to treatment plan.? Anticipatory guidance given.? Patient agrees to follow-up as directed and is aware of reasons to seek care at the emergency department. Portions of this record may have been created with voice recognition software Level of Care: Express Care Visit Vital Signs Vital signs: Vital Signs Temperature 36.7 C 01/27/25 14:28 Pulse Rate 60 01/27/25 14:28 Respiratory Rate 20 01/27/25 14:28 Blood Pressure 129/72 01/27/25 14:28 Pulse Oximetry 99 01/27/25 14:28 Oxygen Delivery Room Air 01/27/25 14:28 Temperature 36.7 C 01/27/25 14:28 Pulse Rate 60 01/27/25 14:28 Respiratory Rate 20 01/27/25 14:28 Blood Pressure 129/72 01/27/25 14:28 Pulse Oximetry 99 01/27/25 14:28 Oxygen Delivery Room Air 01/27/25 14:28 Transfer Transfered to: [place] Transportation: Other (per private car for further evaluation of left groin pain with some radiation to left testes) Transfer rationale: Needs further evaluation and higher level of care and testing than can be done in urgent care Accepting physician: Dr Gallagher Transfer comments: transfer per private car to ED at [facility] for further evaluation MDM - Male Genitourinary MDM Narrative Medical decision making narrative: 0 Call placed to ED at [facility] ED and condition update, PMH and vital signs and urine test results reviewed with Dr Gallagher with acceptance of patient for transfer. Differential Diagnosis Differential diagnosis: Likely urethritis, prostatitis, inguinal hernia and other (urolithiasis, testicle pain left) Medical Records Attestation: I reviewed the patient's medical records. Lab Data Attestation: I reviewed the patient's lab results. Lab results narrative: see urine dip report reviewed Labs: Lab Results 01/27/25 Range/Units 14:57 POC Urine Color Yellow POC Urine Clarity Clear POC Urine pH 5.5 POC Ur Specif [place] 1.030 POC Urine Protein Negative (Negative) POC Ur Glucose (UA) Negative (Negative) POC Urine Ketones Negative (Negative) POC Urine Blood Trace (Negative) POC Urine Nitrite Negative (Negative) POC Urine Bilirubin Negative (Negative) POC Urine Urobilinogen 0.2 POC U Leukocyte Esteras Negative (Negative) reviewed Critical Care Time Critical Care Time Critical Care Time: No Discharge Plan Discharge Clinical Impression: Left groin pain, Pain in left testicle Patient Disposition: Acute Care Hospital Condition: Stable Patient Language: Kuwaiti Prescriptions: No Action aspirin [Aspir-81] 81 mg Tablet,Delayed Release (Dr/Ec) 81 mg PO DAILY famotidine 20 mg Tablet 20 mg PO DAILY metoprolol tartrate 25 mg tablet 25 mg PO BID amlodipine 5 mg tablet 5 mg PO DAILY sildenafil (pulm.hypertension) 20 mg tablet 20 mg PO DAILY PRN (Reason: erectal dysfunction) atorvastatin 40 mg tablet 40 mg PO HS finasteride 5 mg tablet 5 mg PO DAILY clopidogrel 75 mg tablet 75 mg PO DAILY tamsulosin [Flomax] 0.4 mg capsule 0.4 mg PO DAILY Qty: 10 0RF hydrocodone-acetaminophen 5-325 mg tablet 1 tablet PO Q6H PRN (Reason: pain) 3 Days Qty: 12 0RF ondansetron 4 mg tablet,disintegrating 4 mg PO Q8H PRN (Reason: nausea and vomiting) Qty: 10 0RF loratadine [Claritin] 10 mg tablet 10 mg PO DAILY Qty: 90 2RF Follow-up/Referrals: Matt Carranza DO [Primary Care Provider] - Time of Disposition: 15:23 Quality [place] Coma Scale Eyes: Open Verbal: Oriented and Alert Motor: Follows Commands [place] Coma Total Score: 15
[2025-01-27 15:32] LABS: EDUAAPPEAR Clear; EDUABILI Negative (Negative); EDUABLOOD Trace (Negative); EDUACOLOR1 Yellow; EDUAGLUCOSE Negative (Negative); EDUAKETONE Negative (Negative); EDUALEUKO Negative (Negative); EDUANITRATE Negative (Negative); EDUAPH 5.5; EDUAPROTEIN Negative (Negative); EDUAUROBILI 0.2
== END 2025-01-27 15:22 | disposition short-term general hospital (02) ==
LOC: EXPBETH 14:21
PROVIDERS: Emergency Provider Registered Nurse; PCP Internal Medicine
DX: R10.32 Left lower quadrant pain (principal); N50.812 Left testicular pain; I25.2 Old myocardial infarction; D69.6 Thrombocytopenia, unspecified; R01.1 Cardiac murmur, unspecified; M10.9 Gout, unspecified; Z95.1 Presence of aortocoronary bypass graft; Z79.82 Long term (current) use of aspirin
CPT/HCPCS: 81003; 87086; 99213; G0463

== ENCOUNTER 2025-01-27 16:14 | Emergency (ER) | payer MEDICARE, SELFPAY ==
--- NOTE | ~2025-01-27 | CT_ITS ---
CT abdomen pelvis wo con Ordering provider: Shante Mac PA-C History: 74 years Male with . L groin/testicluarl pain, hx stones . Comparison: October 03, 2021 Technique: CT abdomen and pelvis without IV and without oral contrast. Automated exposure control and iterative reconstruction technique were employed. The dose-length product was 300.71 mGy-cm. Findings: VISUALIZED LOWER CHEST:. Dependent atelectatic changes. UPPER ABDOMINAL ORGANS: Liver: Normal. Gallbladder: Status post cholecystectomy.. Spleen: Normal. Stomach/duodenum: Normal. Pancreas: Normal. Adrenals: Normal. Kidneys: Left hydronephrotic changes with a stone in the left lower ureter measuring 5 mm. Small cyst in the left kidney lower pole is noted measuring 2.2 cm. PELVIC ORGANS: The bladder shows thickened wall which may be due to cystitis. Clinical evaluation adv ised.. BOWEL AND MESENTERY: Colon: No evidence of diverticulitis. Normal appendix. Small Bowel: Normal. No obstruction. Peritoneum/mesentery: No free air or free fluid. No mesenteric lymphadenopathy. RETROPERITONEUM: Mild atheromatous disease of the abdominal aorta. No retroperitoneal lymphadenopat hy. MUSCULOSKELETAL: Superficial soft tissues: The superficial soft tissues are normal. Bones: Age appropriate degenerative changes of the spine. Bilateral moderate hip osteoarthritic tapia es. IMPRESSION: 1. Stone in the left lower ureter with left hydronephrotic changes. 2. Slightly thickened wall of the urinary bladder which may indicate cystitis. Clinical evaluation a dvised. Reviewed, dictated and finalized at location A. IMPRESSION: 1. Stone in the left lower ureter with left hydronephrotic changes. 2. Slightly thickened wall of the urinary bladder which may indicate cystitis. Clinical evaluation advised.
--- NOTE | ~2025-01-27 | US_ITS ---
TESTICULAR ULTRASOUND (Doppler ultrasound interrogation techniques used as needed for this exam.) Ordering provider: Shante Mac PA-C History: . L testicular pain . Comparison: None. FINDINGS: TESTICLES: Normal in size. The right measures 5.2x 2.9x 3.1 cm and the left measures 5x 3x 3.4 cm. No rmal echogenicity bilaterally without mass lesion. Normal Doppler flow bilaterally. EPIDIDYMIDES: Normal in size. Normal echogenicity bilaterally. Both demonstrate normal Doppler flow. Bilateral epididymal cysts. The right measures 0.7 x 0.7x 0.9 cm. The left measures 0.8 x 0.6 x 0.6 c m. HYDROCELE: Mild bilateral hip. VARICOCELE: None. The right measures 2.6 mm on the left 2.4 mm. OTHER ABNORMALITY: None seen. IMPRESSION: Mild bilateral hydrocele. Bilateral epididymal cysts. Otherwise, normal testicular ultrasound. Reviewed, dictated and finalized at location A. IMPRESSION: Mild bilateral hydrocele. Bilateral epididymal cysts. Otherwise, normal testicu lar ultrasound.
--- OUTSIDE RECORDS SUMMARY | 2025-01-27 16:16 | XMS_ITS | Clinical Summary ---
Author Organization [facility] [address] Address [address] [place] [address] Care Team Providers Care Administrative Services Coordinator Name Role Phone Matt Carranza DO Primary Care Provider [phone] Dakotah Mcrae MD Unavailable [phone] Donte Ghosh MD Unavailable [phone] Geoff Mesa MD Unavailable Allergies Active Allergy [...] 5 mg tabletIndications :Coronary artery disease of [place] artery of [place] heart with stable angina pectoris,Essentia l hypertension [...] (05/29/2018): Added automatically from request for surgery [id number] Encounters Date Type Department Care Team Description 12/08/2024 Documentation [facility] Surgery [address] [place] [address] [address] [place] [address] Brooke Martinez 11/26/2024 1:00 PM CHEF KITCHEN MANAGER Ancillary Procedure [facility] Cardiology at [address] [place] [phone] H/O aortic valve replacement; Cardiomyopathy, ischemic 11/26/2024 8:45 AM CHEF KITCHEN MANAGER Office Visit [facility] Cardiology at [address] [phone] Donte Ghosh MD Coronary artery disease of [place] artery of [place] heart with stable angina pectoris (Primary Dx); H/O aortic valve replacement; Cardiomyopathy, ischemic; Essential hypertension; Hyperlipidemia LDL goal <70 11/22/2024 Documentation [facility] Surgery [address] [place] [address] Tammie Baird, ELIZABETH Reschedule CTS [...] on file Legal Sex Male 2:51 PM CHEF KITCHEN MANAGER Gender Identity Male 11/13/2021 11:51 AM CHEF KITCHEN MANAGER Sexual Orientation Straight 11/13/2021 11 :51 AM CHEF KITCHEN MANAGER Obstetrics History Last Filed Vital Signs Vital Sign Reading Time Taken Comments Blood Pressure 122/76 11/26/2024 8:42 AM CHEF KITCHEN MANAGER Pulse 62 11/26/2024 8:42 AM CHEF KITCHEN MANAGER Temperature -13.4 C (7.8 F) 06/11/2024 11:07 AM CDT Respiratory Rate 17 06/11/2024 6:00 PM CDT Oxygen Saturation 99% 11/26/2024 8:42 AM CHEF KITCHEN MANAGER Inhaled Oxygen Concentration - - Weight 99.8 kg (220 lb) 11/26/2024 8:42 AM CHEF KITCHEN MANAGER Height 188 cm (6' 2 ) 11/26/2024 8:42 AM CHEF KITCHEN MANAGER Body Mass Index 28.25 11/26/2024 8:42 AM CHEF KITCHEN MANAGER Plan of Treatment Health Maintenance Due Date [...] 09/28/2016, 07/21 Medical Devices Implanted Type Area Care Tech Device Identifier Shelf Expiration Date Model / Serial / Lot [employer] [id number] BrittaneyPato s Perimount Magna Ease Thermafix 25mm - [id number] - [id number] Implanted:Qty: 1 on 06/01/2018 by Imer Davis MD at [facility] N/A: Heart [employer] 03/06/2022 [id number] / [id number] / [employer] Device Vascular Closure Femoral Artery Bioabsorbable Dual Method Vascade 6-7fr Collagen [id number] - [id number] Implanted:Qty: 1 on 04/15/2024 by Fabio Romano MD at [facility] [employer] 12/16/2025 [id number] / / [id number] Medtronic Card Vasc Surgery 4.0 X 18mm Ori Putnam Rx Coronary Stent [id number] - [id number] Implanted:Qty: 1 on 06/11/2024 by Fabio Romano MD at [facility] Medtronic Card Vasc Surgery 01/20/2027 [id number] / / [id number] Procedures Procedure Name Priority Date/Time Associated Diagnosis Comments TRANSTHORACIC ECHO (TTE) COMPLETE W DOPPLER/CF WO CONTRAST Routine 11/26/2024 1:43 PM CHEF KITCHEN MANAGER H/O aortic valve replacement Cardiomyopathy, ischemic from Last 3 Months Results * TRANSTHORACIC ECHO (TTE) COMPLETE W DOPPLER/CF WO CONTRAST (11/26/2024 1:43 PM CHEF KITCHEN MANAGER) LV EF 60-65 % CONS SCIMAGE Anatomical Region Laterality Modality Ultrasound 11/26/2024 12:5 9 PM CHEF KITCHEN MANAGER Narrative 11/26/2024 4:18 PM CHEF KITCHEN MANAGER [facility] Cardiology [address], [address], [place] [address] P:[phone] P:[phone] Echocardiographic Report Patient Name: VAIBHAV DANIELS E [...] FINDINGS: Interpretation Site: Exam was interpreted at [facility]. Left Ventricle: Normal left ventricular systolic function. [...] By: Donte Ghosh MD 11/26/2024 4:16:49 PM CHEF KITCHEN MANAGER Procedure Note Donte Ghosh MD - 11/26/2024 [facility] Cardiology [facility], [address], [place] [address] P:[phone] P:[phone] Echocardiographic Report Patient Name: VAIBHAV DANIELS E [...] FINDINGS: Interpretation Site: Exam was interpreted at [facility]. Left Ventricle: Normal left ventricular systolic function. [...] By: Donte Ghosh MD 11/26/2024 4:16:49 PM CHEF KITCHEN MANAGER us Donte Ghosh MD CV ECHO PROCEDURES Final Result from Last 3 Months Insurance AETNA MEDICARE GOLD AETNA MEDICARE GOLD Advance Directives For more information, please contact: [phone] * Full Code (Latest Code Status on File) Date Activated Date Inactivated Comments 05/28/2018 5:26 PM 06/09/2018 4:26 PM Care Teams Administrative Services Coordinator Relationship Specialty Start Date End Date Matt Carranza DO PCP - General Internal Medicine 05/20/18 Dakotah Mcrae MD [facility] [address] [place] [address] Consulting Physician Interventional Cardiology 06/05/18 Donte Ghosh MD [address] [facility] [address] [place] [address] Consulting Physician Cardiology 12/01/23 [place] [address] [address] ADULT CARDIO, [facility] [address] [place] [address] Surgeon Cardiothoracic Surgery 12/01/23
--- OUTSIDE RECORDS SUMMARY | 2025-01-27 16:16 | XMS_ITS | Clinical Summary ---
Author Organization [facility] Address [address] [place] [address] Phone Care Team Providers Care Library Consultant Name Role Phone FiorellaMatt roberts Primary Care [...] 12/01/2017 fluticasone (FLONASE) 50 MCG/ACT Suspension 1 [place] by Nasal route daily. Use in each [...] Insurance MEDICARE AETNA SENIOR SUPPLEMENTAL Care Teams Library Consultant Relationship Specialty Start Date End Date Matt Carranza DO [address] [place] [address] [address] [place] [address] PCP - General Internal Medicine 01/01/16
--- OUTSIDE RECORDS SUMMARY | 2025-01-27 16:16 | XMS_ITS | Clinical Summary ---
Author Organization [facility] Address [address] [place] [address] Care Team Providers Care Milk Route Deliverer Name Role Phone Matt Carranza Primary Care [...] Comments Blood Pressure 144/79 09/05/2023 11:55 AM ON LINE CSR Pulse 58 09/05/2023 11:52 AM ON LINE CSR Temperature 36.2 C (97.2 F) 09/05/2023 11:52 AM ON LINE CSR Respiratory Rate 10 09/05/2023 11:52 AM ON LINE CSR Oxygen Saturation 100% 09/05/2023 11:52 AM ON LINE CSR Inhaled Oxygen Concentration - - Weight 99.3 kg (219 lb) 09/05/2023 11:52 AM ON LINE CSR Height 188 cm (6' 2 ) 08/21/2023 [...] 07/05/2029 07/05/2019 Colorectal Cancer Screening 07/05/2029 Insurance [facility] MEDICARE PART A AND B Care Teams Milk Route Deliverer Relationship Specialty Start Date End Date Matt Carranza DO [address] [address] PCP - General Internal Medicine 05/19/23
--- OUTSIDE RECORDS SUMMARY | 2025-01-27 16:16 | XMS_ITS | Referral Summary ---
Author Organization [facility] [address] Address [address] [place] [address] Care Team Providers Care Software Tools Developer Name Role Phone Matt Carranza DO Primary Care Provider [phone] Dakotah Mcrae MD Unavailable [phone] Donte Ghosh MD Unavailable [phone] Geoff Mesa MD Unavailable [phone] Encounters Date Type Department Care Team Description 12/08/2024 Documentation [facility] [id number] [place] [address] [address] [place] [address] Brooke Martinez 11/26/2024 1:00 PM HEARING CARE PRACTITIONER Ancillary Procedure [facility] Card[facility] at [address] [place] [id number] H/O aortic valve replacement; Cardiomyopathy, ischemic 11/26/2024 8:45 AM HEARING CARE PRACTITIONER Office Visit [facility] at [address] [place] [address] Donte Ghosh MD Coronary artery disease of [place] artery of [place] heart with stable angina pectoris (Primary Dx); H/O aortic valve replacement; Cardiomyopathy, ischemic; Essential hypertension; Hyperlipidemia LDL goal <70 11/22/2024 Documentation [facility] [id number] [place] [address] [address] [place] [address] Tammie Baird NP Reschedule CTS [...] 5 mg tabletIndications :Coronary artery disease of [place] artery of [place] heart with stable angina pectoris,Essentia l hypertension [...] (05/29/2018): Added automatically from request for surgery [id number] Social History Tobacco Use Types Packs/Day Years [...] on file Legal Sex Male 2:51 PM HEARING CARE PRACTITIONER Gender Identity Male 11/13/2021 11:51 AM HEARING CARE PRACTITIONER Sexual Orientation Straight 11/13/2021 11 :51 AM HEARING CARE PRACTITIONER Last Filed Vital Signs Vital Sign Reading Time Taken Comments Blood Pressure 122/76 11/26/2024 8:42 AM HEARING CARE PRACTITIONER Pulse 62 11/26/2024 8:42 AM HEARING CARE PRACTITIONER Temperature -13.4 C (7.8 F) 06/11/2024 11:07 AM CDT Respiratory Rate 17 06/11/2024 6:00 PM CDT Oxygen Saturation 99% 11/26/2024 8:42 AM HEARING CARE PRACTITIONER Inhaled Oxygen Concentration - - Weight 99.8 kg (220 lb) 11/26/2024 8:42 AM HEARING CARE PRACTITIONER Height 188 cm (6' 2 ) 11/26/2024 8:42 AM HEARING CARE PRACTITIONER Body Mass Index 28.25 11/26/2024 8:42 AM HEARING CARE PRACTITIONER Plan of Treatment Not on file Medical Devices Implanted Type Area Studio Producer Device Identifier Shelf Expiration Date Model / Serial / Lot [employer] [id number] BrittaneyPato s [place] Magna Ease Thermafix 25mm - [id number] - [id number] Implanted:Qty: 1 on 06/01/2018 by Imer Davis MD at [facility] N/A: Heart [employer] 03/06/2022 [id number] / [id number] / [employer] Device Vascular Closure Femoral Artery Bioabsorbable Dual Method Vascade 6-7fr Collagen [id number] - [id number] Implanted:Qty: 1 on 04/15/2024 by Fabio Romano MD at [facility] [employer] 12/16/2025 [id number] / / [id number] Medtronic Card Vas Surgery 4.0 X 18mm Ori [place] Rx Coronary Stent [id number] - [id number] Implanted:Qty: 1 on 06/11/2024 by Fabio Romano MD at [facility] Medtronic Card Vasc Surgery 01/20/2027 [id number] / / [id number] Procedures Procedure Name Priority Date/Time Associated Diagnosis Comments TRANSTHORACIC ECHO (TTE) COMPLETE W DOPPLER/CF WO CONTRAST Routine 11/26/2024 1:43 PM HEARING CARE PRACTITIONER H/O aortic valve replacement Cardiomyopathy, ischemic from Last 3 Months Results * TRANSTHORACIC ECHO (TTE) COMPLETE W DOPPLER/CF WO CONTRAST (11/26/2024 1:43 PM HEARING CARE PRACTITIONER) LV EF 60-65 % CONS SCIMAGE Anatomical Region Laterality Modality Ultrasound 11/26/2024 12:5 9 PM HEARING CARE PRACTITIONER Narrative 11/26/2024 4:18 PM HEARING CARE PRACTITIONER [facility] [address], [address], [place] [address] P:[phone] P:[phone] Echocardiographic Report Patient Name: VAIBHAV DANIELS E [...] By: Donte Ghosh MD 11/26/2024 4:16:49 PM HEARING CARE PRACTITIONER Procedure Note Donte Ghosh MD - 11/26/2024 [facility] [address], [address], [place] [address] P:[phone] P:[phone] Echocardiographic Report Patient Name: VAIBHAV DANIELS E [...] FINDINGS: Interpretation Site: Exam was interpreted at [facility]. Left Ventricle: Normal left ventricular systolic function. [...] By: Donte Ghosh MD 11/26/2024 4:16:49 PM HEARING CARE PRACTITIONER Donte Ghosh MD CV ECHO PROCEDURES Final Result from Last 3 Months Insurance [facility] MEDICARE GOLD [facility] MEDICARE GOLD Advance Directives For more information, please contact: [phone] * Full Code (Latest Code Status on File) Date Activated Date Inactivated Comments 05/28/2018 5:26 PM 06/09/2018 4:26 PM Care Teams Software Tools Developer Relationship Specialty Start Date End Date Matt Carranza DO PCP - General Internal Medicine 05/20/18 Dakotah Mcrae MD [address] [facility] [place] [address] Consulting Physician Interventional Cardiology 06/05/18 Donte Ghosh MD [address] [facility] [address] [place] [address] Consulting Physician Cardiology 12/01/23 [place] [address] ADULT CARDIO, [facility] [address] [place] [address] Surgeon Cardiothoracic Surgery 12/01/23
[2025-01-27 16:42] VITALS: BP 143/74; PULSE 57; RESP 16; TEMP 36.6; O2SAT 100
--- NOTE | 2025-01-27 18:31 | ED.MALEGU ---
HPI - Male Genitourinary General Chief complaint: Urogenital-Male <Shante Mac PA-C - Last Filed: 01/27/25 19:26> Stated complaint: Left groin pain-sent from <Shante Mac PA-C - Last Filed: 01/27/25 19:26> Time Seen by Provider: 01/27/25 18:31 <SHANELL Linder Last Filed: 01/27/25 19:26> Focused HPI: Patient is a 74 y/o male who presents the ED with report of left-sided groin pain. Patient reports he began having slight discomfort in his left-sided groin earlier this week. Today pain became more severe, radiating into his left testicle. Has previously seen Dr. Hoffman with Urology, but was unable to make appointment this week. Pain is intermittent, denies current pain. Reports having diarrhea today, difficulty urinating/dribbling urine. Went to an urgent care and was referred to the ED for further evaluation. States he has since urinated in the ED and was normal. Denies dysuria, hematuria, significant abdominal pain, back pain. Reports remote Hx of kidney stone. GENERAL: Well-appearing, well-nourished, and in no acute distress. HEAD: Normocephalic, atraumatic. CHEST: Clear to auscultation. ?No respiratory distress. HEART: Regular rate and rhythm.? ABD: Mild TTP in LLQ, inguinal region. NEURO: ?Alert and oriented x3. Patient screened in triage and initial orders placed.? ?Additional care and disposition to be based upon?diagnostic testing and treatment. <Shante Mac PA-C - Last Filed: 01/27/25 19:26> Source: patient <SHANELL Linder Last Filed: 01/27/25 19:26> Mode of arrival: ambulatory <SHANELL Linder Last Filed: 01/27/25 19:26> Limitations: no limitations <SHANELL Linder Last Filed: 01/27/25 19:26> History of Present Illness HPI Narrative: Patient 74-year-old gentleman presents emergency department chief complaint of left testicle and left inguinal pain. The patient states that he has had a kidney stone in the past reports that he has started having discomfort that also was in the left scrotal area the patient reports no swelling denies dysuria does report that he has had some difficulty starting his stream recently at times patient states that in the past he had a kidney stone that he was able to pass on his own patient denies fever denies vomiting <Rashel Martinez MD - Last Filed: 01/27/25 22:14> Related Data Home medications: Home Medications ?Medication ?Instructions ?Recorded ?Confirmed ?Last Taken ?Type aspirin 81 mg tablet,delayed 81 mg PO DAILY 08/27/19 10/04/24 06/23/24 09:00 History release (Aspir-) famotidine 20 mg tablet 20 mg PO DAILY 08/27/19 10/04/24 06/23/24 09:00 History finasteride 5 mg tablet 5 mg PO DAILY 10/17/21 10/04/24 06/23/24 09:00 History amlodipine 5 mg tablet 5 mg PO DAILY 05/10/24 10/04/24 06/23/24 09:00 History atorvastatin 40 mg tablet 40 mg PO HS 05/10/24 10/04/24 06/22/24 21:00 History metoprolol tartrate 25 mg tablet 25 mg PO BID 05/10/24 10/04/24 06/23/24 09:00 History sildenafil (pulm.hypertension) 20 20 mg PO DAILY PRN erectal 05/10/24 10/04/24 Unknown History mg tablet dysfunction clopidogrel 75 mg tablet 75 mg PO DAILY 06/24/24 10/04/24 06/23/24 09:00 History <Shante Mac PA-C - Last Filed: 01/27/25 19:26> Allergies/Adverse reactions: Allergies Allergy/AdvReac Type Severity Reaction Status Date / Time Penicillins Allergy Unknown Rash Verified 01/27/25 16:47 <Shante Mac PA-C - Last Filed: 01/27/25 19:26> Review of Systems Review of Systems: A 10 system review of systems was completed on the patient and is negative except for what is stated in the HPI. Nursing and ancillary documentation was reviewed. <Rashel Martinez MD - Last Filed: 01/27/25 22:14> [facility] Past Medical History Medical History: Medical History Heart attack Breast pain in male Breast mass in male Chronic sinusitis Cholecystitis Thrombocytopenia, unspecified Allergies Heart murmur History of measles, mumps, or rubella Insomnia Gout <Shante Mac PA-C - Last Filed: 01/27/25 19:26> Surgical History Surgical History: Surgical History History of cholecystectomy Hx laparoscopic cholecystectomy 10/22/21 History of prostate surgery 2010 Hx of CABG <Shante Mac PA-C - Last Filed: 01/27/25 19:26> Family History Family History: Family History Mother Acute myocardial infarction Father Lupus Sibling Lupus <Shante Mac PA-C - Last Filed: 01/27/25 19:26> Social History Social History: Social History Smoking status: Never smoker Alcohol intake: never Do You Feel Safe in your Home?: Yes Lack of Transportation: No Lack of Food: Never True Current Housing: I Have Housing Concerned About Future Housing: No Difficulty Paying Gas/Electric Bills: No Difficulty Paying for Meds: No Currently Unemployed: No Education: High School Diploma/GED Difficulty w/ Childcare or Family Care: No Living arrangements: alone Spiritual care concerns: No <Shante Mac PA-C - Last Filed: 01/27/25 19:26> Exam Narrative: GENERAL: Well-appearing, well-nourished, and in no acute distress. HEAD: Normocephalic, atraumatic. EYES: PERRLA and EOMI. ENT: Nares clear, no rhinorrhea or epistaxis. Mucous membranes moist. NECK: Supple. CHEST: Clear to auscultation. No respiratory distress. HEART: Regular rate and rhythm. No murmur heard. Normal peripheral pulses. ABDOMEN: Soft, nontender, nondistended, normal active bowel sounds. EXTREMITIES: Normal range of motion. No edema. SKIN: Warm, dry, no rash. NEURO: No focal deficits. Alert and oriented x3. PSYCH: Normal mood and affect. <Rashel Martinez MD - Last Filed: 01/27/25 22:14> Course Vital Signs Vital signs: Vital Signs Temperature 36.6 C 01/27/25 16:42 Pulse Rate 57 L 01/27/25 16:42 Respiratory Rate 16 01/27/25 16:42 Blood Pressure 143/74 H 01/27/25 16:42 Pulse Oximetry 100 01/27/25 16:42 Oxygen Delivery Room Air 01/27/25 16:42 Temperature 36.5 C 01/27/25 20:13 Pulse Rate 57 L 01/27/25 20:13 Respiratory Rate 20 01/27/25 20:13 Blood Pressure 153/79 H 01/27/25 20:13 Pulse Oximetry 100 01/27/25 20:13 Oxygen Delivery Room Air 01/27/25 16:42 <Sahnte Mac PA-C - Last Filed: 01/27/25 19:26> Vital Signs Temperature 36.6 C 01/27/25 16:42 Pulse Rate 57 L 01/27/25 16:42 Respiratory Rate 16 01/27/25 16:42 Blood Pressure 143/74 H 01/27/25 16:42 Pulse Oximetry 100 01/27/25 16:42 Oxygen Delivery Room Air 01/27/25 16:42 Temperature 36.5 C 01/27/25 20:13 Pulse Rate 57 L 01/27/25 20:13 Respiratory Rate 20 01/27/25 20:13 Blood Pressure 153/79 H 01/27/25 20:13 Pulse Oximetry 100 01/27/25 20:13 Oxygen Delivery Room Air 01/27/25 16:42 <Rashel Martinez MD - Last Filed: 01/27/25 22:14> MDM - Male Genitourinary MDM Narrative Medical decision making narrative: MSE by DONN in triage. <Shante Mac PA-C - Last Filed: 01/27/25 19:26> MSE by DONN in triage. Differential diagnosis includes ureterolithiasis, UTI, pyelonephritis, intra-abdominal infection, diverticulitis, colitis, testicular torsion, testicular abscess CT scan showed evidence of a 5 mm ureteral stone Scrotal ultrasound showed no acute abnormality Patient will be discharged home with a prescription for pain medications Zofran and Flomax patient has an appointment scheduled tomorrow with Urology <Rashel Martinez MD - Last Filed: 01/27/25 22:14> Lab Data Result diagrams: 01/27/25 18:43 01/27/25 18:43 <Shante Mac PA-C - Last Filed: 01/27/25 19:26> Labs: Lab Results 01/27/25 01/27/25 Range/Units 18:43 20:22 WBC 7.2 (4.5-10.0) K/mm3 RBC 5.17 (4.6-6.20) M/mm3 Hgb 15.5 (14.0-18.0) g/dL Hct 47.3 (42.0-52.0) % MCV 91.5 (80-100) fl MCH 30.0 (26-34) pg MCHC 32.8 (32-36) g/dl RDW 13.5 (11.5-14.5) % Plt Count 124 L (150-375) k/mm3 MPV 11.1 H (7.4-10.4) fl Immature Gran % (Auto) 0.3 (0-0.5) % Neut % (Auto) 49.6 (45.5-73.1) % Lymph % (Auto) 41.7 (18.3-44.2) % [place] % (Auto) 5.0 (2.6-8.5) % Eos % (Auto) 3.1 (0-4.4) % Baso % (Auto) 0.3 (0.2-1.2) % Lymph # (Auto) 3.00 (0.9-3.2) K/mm3 [place] # (Auto) 0.4 (0.1-0.6) K/mm3 Eos # (Auto) 0.2 (0-0.3) K/mm3 Baso # (Auto) 0.0 (0.0-0.1) K/mm3 Abs Immat Gran (auto) 0.02 (0.00-0.031) K/mm3 Absolute Neuts (auto) 3.6 (1.3-6.7) K/mm3 Absolute Nucleated RBC 0.000 (0.0-0.012) K/mm3 Nucleated RBC % 0.0 (0.0-0.2) % % Immature Plt Fraction 6.0 (0.9-11.2) % Sodium 138 (137-145) mmol/L Potassium 4.9 (3.4-5.0) mmol/L Chloride 103 (98-107) mmol/L Carbon Dioxide 29 (22-30) mmol/L Anion Gap 6 (4-12) mmol/L BUN 23 H (9-20) mg/dL Creatinine 1.24 (0.7-1.3) mg/dL Estim Creat Clear Calc 53 ml/min Estimated GFR 57 L (59 - ) Glucose 96 (65-110) mg/dL Calcium 9.1 (8.4-10.2) mg/dL Urine Color Yellow (Yellow) Urine Appearance Clear (Clear) Urine pH 5.5 (5.0-9.0) Ur Specific [place] 1.016 (1.001-1.035) Urine Protein Negative (Negative) mg/dL Urine Glucose (UA) Negative (Negative) mg/dL Urine Ketones Negative (Negative) mg/dL Ur Blood (Man) 2+ H (Negative) Urine Nitrate Negative (Negative) Urine Bilirubin Negative (Negative) Urine Urobilinogen 0.2 (<2.0) mg/dL Leukocyte Esterase Rfl Negative (Negative) WESLY/UL Urine RBC 51-100 H (0-2) /hpf Urine WBC 0-5 (0-3) /hpf Ur Squamous Epith Cells None seen (Few) /hpf Urine Bacteria None seen /hpf Urine Casts 0-2 <Shante Mac PA-C - Last Filed: 01/27/25 19:26> Lab Results 01/27/25 01/27/25 Range/Units 18:43 20:22 WBC 7.2 (4.5-10.0) K/mm3 RBC 5.17 (4.6-6.20) M/mm3 Hgb 15.5 (14.0-18.0) g/dL Hct 47.3 (42.0-52.0) % MCV 91.5 (80-100) fl MCH 30.0 (26-34) pg MCHC 32.8 (32-36) g/dl RDW 13.5 (11.5-14.5) % Plt Count 124 L (150-375) k/mm3 MPV 11.1 H (7.4-10.4) fl Immature Gran % (Auto) 0.3 (0-0.5) % Neut % (Auto) 49.6 (45.5-73.1) % Lymph % (Auto) 41.7 (18.3-44.2) % [place] % (Auto) 5.0 (2.6-8.5) % Eos % (Auto) 3.1 (0-4.4) % Baso % (Auto) 0.3 (0.2-1.2) % Lymph # (Auto) 3.00 (0.9-3.2) K/mm3 [place] # (Auto) 0.4 (0.1-0.6) K/mm3 Eos # (Auto) 0.2 (0-0.3) K/mm3 Baso # (Auto) 0.0 (0.0-0.1) K/mm3 Abs Immat Gran (auto) 0.02 (0.00-0.031) K/mm3 Absolute Neuts (auto) 3.6 (1.3-6.7) K/mm3 Absolute Nucleated RBC 0.000 (0.0-0.012) K/mm3 Nucleated RBC % 0.0 (0.0-0.2) % % Immature Plt Fraction 6.0 (0.9-11.2) % Sodium 138 (137-145) mmol/L Potassium 4.9 (3.4-5.0) mmol/L Chloride 103 (98-107) mmol/L Carbon Dioxide 29 (22-30) mmol/L Anion Gap 6 (4-12) mmol/L BUN 23 H (9-20) mg/dL Creatinine 1.24 (0.7-1.3) mg/dL Estim Creat Clear Calc 53 ml/min Estimated GFR 57 L (59 - ) Glucose 96 (65-110) mg/dL Calcium 9.1 (8.4-10.2) mg/dL Urine Color Yellow (Yellow) Urine Appearance Clear (Clear) Urine pH 5.5 (5.0-9.0) Ur Specific [place] 1.016 (1.001-1.035) Urine Protein Negative (Negative) mg/dL Urine Glucose (UA) Negative (Negative) mg/dL Urine Ketones Negative (Negative) mg/dL Ur Blood (Man) 2+ H (Negative) Urine Nitrate Negative (Negative) Urine Bilirubin Negative (Negative) Urine Urobilinogen 0.2 (<2.0) mg/dL Leukocyte Esterase Rfl Negative (Negative) WESLY/UL Urine RBC 51-100 H (0-2) /hpf Urine WBC 0-5 (0-3) /hpf Ur Squamous Epith Cells None seen (Few) /hpf Urine Bacteria None seen /hpf Urine Casts 0-2 <Rashel Martinez MD - Last Filed: 01/27/25 22:14> Discharge Plan Discharge Clinical Impression: Ureterolithiasis <Shante Mac PA-C - Last Filed: 01/27/25 19:26> Patient Disposition: Home <Shante Mac PA-C - Last Filed: 01/27/25 19:26> Condition: Stable <Shante Mac PA-C - Last Filed: 01/27/25 19:26> Instructions: Antibiotic Form, Kidney Stones (ED), How to Strain Your Urine (ED), Flank Pain (ED) <Shante Mac PA-C - Last Filed: 01/27/25 19:26> Additional Instructions: Please follow-up with urology tomorrow for your scheduled appointment <Shante Mac PA-C - Last Filed: 01/27/25 19:26> Patient Language: Greek <Shante Mac PA-C - Last Filed: 01/27/25 19:26> Prescriptions: New tamsulosin [Flomax] 0.4 mg capsule 0.4 mg PO DAILY Qty: 10 0RF hydrocodone-acetaminophen 5-325 mg tablet 1 tablet PO Q6H PRN (Reason: pain) 3 Days Qty: 12 0RF ondansetron 4 mg tablet,disintegrating 4 mg PO Q8H PRN (Reason: nausea and vomiting) Qty: 10 0RF No Action aspirin [Aspir-81] 81 mg Tablet,Delayed Release (Dr/Ec) 81 mg PO DAILY famotidine 20 mg Tablet 20 mg PO DAILY metoprolol tartrate 25 mg tablet 25 mg PO BID amlodipine 5 mg tablet 5 mg PO DAILY sildenafil (pulm.hypertension) 20 mg tablet 20 mg PO DAILY PRN (Reason: erectal dysfunction) atorvastatin 40 mg tablet 40 mg PO HS finasteride 5 mg tablet 5 mg PO DAILY clopidogrel 75 mg tablet 75 mg PO DAILY loratadine [Claritin] 10 mg tablet 10 mg PO DAILY Qty: 90 2RF <Shante Mac PA-C - Last Filed: 01/27/25 19:26> Follow-up/Referrals: Matt Carranza, [Primary Care Provider] - <Shanet Mac PA-C - Last Filed: 01/27/25 19:26> Time of Disposition: 22:14 <Shante Mac PA-C - Last Filed: 01/27/25 19:26> 22:14 <Rashel Martinez MD - Last Filed: 01/27/25 22:14>
[2025-01-27 18:53] LABS: Basophils Percent Auto 0.3 % (0.2-1.2); Eosinophils Absolute Auto 0.2 K/mm3 (0-0.3); Eosinophils Percent Auto 3.1 % (0-4.4); Hematocrit 47.3 % (42.0-52.0); Hemoglobin 15.5 g/dL (14.0-18.0); Immature Granulocyte Absolute 0.02 K/mm3 (0.00-0.031); Immature Granulocyte Percent A 0.3 % (0-0.5); Lymphocytes Percent Auto 41.7 % (18.3-44.2); Mean Corpuscular HGB Conc 32.8 g/dl (32-36); Mean Corpuscular Volume 91.5 fl (80-100); Mean Platelet Volume 11.1 fl (7.4-10.4); Monocytes Absolute Auto 0.4 K/mm3 (0.1-0.6); Neutrophils Absolute Auto 3.6 K/mm3 (1.3-6.7); Neutrophils Percent Auto 49.6 % (45.5-73.1); Platelet Count Result 124 k/mm3 (150-375); Red Blood Count 5.17 M/mm3 (4.6-6.20); Red Cell Distribution Width 13.5 % (11.5-14.5); White Blood Count 7.2 K/mm3 (4.5-10.0)
[2025-01-27 19:02] LABS: Anion Gap 6 mmol/L (4-12); Blood Urea Nitrogen 23 mg/dL (9-20); Calcium 9.1 mg/dL (8.4-10.2); Carbon Dioxide 29 mmol/L (22-30); Chloride 103 mmol/L (98-107); Estimated CRCL calculation 53 ml/min; Estimated Glomerular Filt Rate 57; Glucose 96 mg/dL (65-110); Potassium 4.9 mmol/L (3.4-5.0); Sodium 138 mmol/L (137-145)
[2025-01-27 20:13] VITALS: BP 153/79; PULSE 57; RESP 20; TEMP 36.5; O2SAT 100
[2025-01-27 20:47] LABS: Add Urine Microscopic? YES; Appearance Urine Clear (Clear); Bacteria Urine None Seen /hpf; Bilirubin Urine Negative (Negative); Blood Urine 2+ (Negative); Color Urine Yellow (Yellow); Glucose Urine UA Negative (Negative); Ketones Urine Negative (Negative); Leukocyte Esterase Ur Negative LEU/UL (Negative); Nitrate Urine Negative (Negative); Non Pathogenic Casts 0-2; Protein Urine Negative (Negative); RBC Urine 51-100 /hpf (0-2); Specific Grav Ur 1.016 (1.001-1.035); Squamous Epithelial Cell Urine None Seen /hpf (Few); Urobilinogen Urine 0.2 mg/dL (<2.0); WBC Urine 0-5 /hpf (0-3); pH Urine 5.5 (5.0-9.0)
--- OUTSIDE RECORDS SUMMARY | 2025-01-27 20:58 | XMS_ITS | Clinical Summary ---
Author Organization [facility] Address [address] [place] [address] Care Team Providers Care Dental Nurse Name Role Phone Matt Carranza Primary Care [...] Comments Blood Pressure 144/79 09/05/2023 11:55 AM DESK REPRESENTATIVE Pulse 58 09/05/2023 11:52 AM DESK REPRESENTATIVE Temperature 36.2 C (97.2 F) 09/05/2023 11:52 AM DESK REPRESENTATIVE Respiratory Rate 10 09/05/2023 11:52 AM DESK REPRESENTATIVE Oxygen Saturation 100% 09/05/2023 11:52 AM DESK REPRESENTATIVE Inhaled Oxygen Concentration - - Weight 99.3 kg (219 lb) 09/05/2023 11:52 AM DESK REPRESENTATIVE Height 188 cm (6' 2 ) 08/21/2023 [...] 07/05/2029 07/05/2019 Colorectal Cancer Screening 07/05/2029 Insurance [facility] MEDICARE PART A AND B Care Teams Dental Nurse Relationship Specialty Start Date End Date Matt Carranza DO [address] [address] PCP - General Internal Medicine 05/19/23
--- OUTSIDE RECORDS SUMMARY | 2025-01-27 20:58 | XMS_ITS | Clinical Summary ---
Author Organization [facility] Address [address] [place] [address] Phone Care Team Providers Care Roll Filler Name Role Phone FiorellaMatt roberts Primary Care [...] 12/01/2017 fluticasone (FLONASE) 50 MCG/ACT Suspension 1 [place] by Nasal route daily. Use in each [...] Insurance MEDICARE [employer] Care Teams Roll Filler Relationship Specialty Start Date End Date Matt Carranza DO [address] [place] [address] [facility] [place] [address] PCP - General Internal Medicine 01/01/16
--- OUTSIDE RECORDS SUMMARY | 2025-01-27 20:58 | XMS_ITS | Referral Summary ---
Author Organization [facility] [place] [address] Address [address] [place] [address] Care Team Providers Care Deer Farmer Name Role Phone Matt Carranza DO Primary Care Provider [phone] Dakotah Mcrae MD Unavailable [phone] Donte Ghosh MD Unavailable [phone] Geoff Mesa MD Unavailable [phone] Encounters Date Type Department Care Team Description 12/08/2024 Documentation [facility] Surgery [id number] [place] [address] [address] [place] [address] Brooke Martinez 11/26/2024 1:00 PM CLERICAL DENTIST ASSISTANT Ancillary Procedure [facility] Medical Group Cardiology at [address] [place] [address] H/O aortic valve replacement; Cardiomyopathy, ischemic 11/26/2024 8:45 AM CLERICAL DENTIST ASSISTANT Office Visit [facility] Medical Group Cardiology at [address] [place] [address] Donte Ghosh MD Coronary artery disease of [place] artery of [place] heart with stable angina pectoris (Primary Dx); H/O aortic valve replacement; Cardiomyopathy, ischemic; Essential hypertension; Hyperlipidemia LDL goal <70 11/22/2024 Documentation [facility] Surgery [address] [place] [address] [address] [place] [address] Tammie Baird NP Reschedule CTS [...] 5 mg tabletIndications :Coronary artery disease of [place] artery of [place] heart with stable angina pectoris,Essentia l hypertension [...] (05/29/2018): Added automatically from request for surgery [id number] Social History Tobacco Use Types Packs/Day Years [...] on file Legal Sex Male 2:51 PM CLERICAL DENTIST ASSISTANT Gender Identity Male 11/13/2021 11:51 AM CLERICAL DENTIST ASSISTANT Sexual Orientation Straight 11/13/2021 11 :51 AM CLERICAL DENTIST ASSISTANT Last Filed Vital Signs Vital Sign Reading Time Taken Comments Blood Pressure 122/76 11/26/2024 8:42 AM CLERICAL DENTIST ASSISTANT Pulse 62 11/26/2024 8:42 AM CLERICAL DENTIST ASSISTANT Temperature -13.4 C (7.8 F) 06/11/2024 11:07 AM CDT Respiratory Rate 17 06/11/2024 6:00 PM CDT Oxygen Saturation 99% 11/26/2024 8:42 AM CLERICAL DENTIST ASSISTANT Inhaled Oxygen Concentration - - Weight 99.8 kg (220 lb) 11/26/2024 8:42 AM CLERICAL DENTIST ASSISTANT Height 188 cm (6' 2 ) 11/26/2024 8:42 AM CLERICAL DENTIST ASSISTANT Body Mass Index 28.25 11/26/2024 8:42 AM CLERICAL DENTIST ASSISTANT Plan of Treatment Not on file Medical Devices Implanted Type Area Non Profit Financial Controller Device Identifier Shelf Expiration Date Model / Serial / Lot Ugarte Lifesciences [id number] BrittaneyPato s Perimount Magna Ease Thermafix 25mm - [id number] - [id number] Implanted:Qty: 1 on 06/01/2018 by Imer Davis MD at [facility] N/A: Heart U[employer]e Lifesciences 03/06/2022 [id number] / [id number] / Cardiva Medical Inc Device Vascular Closure Femoral Artery Bioabsorbable Dual Method Vascade 6-7fr Collagen [id number] - [id number] Implanted:Qty: 1 on 04/15/2024 by Fabio Romano MD at [facility] [employer] 12/16/2025 700-580I-0 [id number] / / [id number] Medtronic Card Vas Surgery 4.0 X 18mm Ori [place] Rx Coronary Stent [id number] - [id number] Implanted:Qty: 1 on 06/11/2024 by Fabio Romano MD at [facility] Medtronic Card Vasc Surgery 01/20/2027 [id number] / / [id number] Procedures Procedure Name Priority Date/Time Associated Diagnosis Comments TRANSTHORACIC ECHO (TTE) COMPLETE W DOPPLER/CF WO CONTRAST Routine 11/26/2024 1:43 PM CLERICAL DENTIST ASSISTANT H/O aortic valve replacement Cardiomyopathy, ischemic from Last 3 Months Results * TRANSTHORACIC ECHO (TTE) COMPLETE W DOPPLER/CF WO CONTRAST (11/26/2024 1:43 PM CLERICAL DENTIST ASSISTANT) LV EF 60-65 % CONS SCIMAGE Anatomical Region Laterality Modality Ultrasound 11/26/2024 12:5 9 PM CLERICAL DENTIST ASSISTANT Narrative 11/26/2024 4:18 PM CLERICAL DENTIST ASSISTANT [facility] Medical Group Cardiology [address], [address], [place] [address] P:[phone] P:[phone] Echocardiographic Report Patient Name: VAIBHAV DANIELS E [...] By: Donte Ghosh MD 11/26/2024 4:16:49 PM CLERICAL DENTIST ASSISTANT Procedure Note Donte Ghosh MD - 11/26/2024 [facility] Medical Group Cardiology [address], [address], [place] [address] P:[phone] P:[phone] Echocardiographic Report Patient Name: VAIBHAV DANIELS E [...] Interpretation Site: Exam was interpreted at [facility]. Left Ventricle: Normal left ventricular systolic function. [...] By: Donte Ghosh MD 11/26/2024 4:16:49 PM CLERICAL DENTIST ASSISTANT Donte Ghosh MD CV ECHO PROCEDURES Final Result from Last 3 Months Insurance [facility] MEDICARE GOLD [facility] MEDICARE GOLD Advance Directives For more information, please contact: [phone] * Full Code (Latest Code Status on File) Date Activated Date Inactivated Comments 05/28/2018 5:26 PM 06/09/2018 4:26 PM Care Teams Deer Farmer Relationship Specialty Start Date End Date Matt Carranza DO PCP - General Internal Medicine 05/20/18 Dakotah Mcrae MD [address] [facility] [address] [address] Consulting Physician Interventional Cardiology 06/05/18 Donte Ghosh MD [address] [facility] [address] [place] [address] Consulting Physician Cardiology 12/01/23 [place] [address] ADULT CARDIO, [facility] [address] [place] [address] Surgeon Cardiothoracic Surgery 12/01/23
--- OUTSIDE RECORDS SUMMARY | 2025-01-27 20:58 | XMS_ITS | Clinical Summary ---
Author Organization [facility] [place] [address] Address [address] [place] [address] Care Team Providers Care Splitting Machine Feeder Name Role Phone Matt Carranza DO Primary Care Provider [phone] Dakotah Mcrae MD Unavailable [phone] Donte Ghosh MD Unavailable Geoff Mesa MD Unavailable [phone] Allergies Active Allergy Reactions Criticality Noted Date [...] 5 mg tabletIndications :Coronary artery disease of [place] artery of [place] heart with stable angina pectoris,Essentia l hypertension [...] (05/29/2018): Added automatically from request for surgery [id number] Encounters Date Type Department Care Team Description 12/08/[address] [facility] Surgery [address] [place] [address] [address] [place] [address] Brooke Martinez 11/26/2024 1:00 PM CHICKEN PICKER Ancillary Procedure [facility] Medical Group Cardiology at [address] [place] [phone] H/O aortic valve replacement; Cardiomyopathy, ischemic 11/26/2024 8:45 AM CHICKEN PICKER Office Visit [facility] Medical Group Cardiology at [address] [phone] Donte Ghosh MD Coronary artery disease of [place] artery of [place] heart with stable angina pectoris (Primary Dx); H/O aortic valve replacement; Cardiomyopathy, ischemic; Essential hypertension; Hyperlipidemia LDL goal <70 11/22/[address] [facility] Surgery [address] [facility] [address] [place] [address] Tammie Baird, ELIZABETH Reschedule CTS [...] on file Legal Sex Male 2:51 PM CHICKEN PICKER Gender Identity Male 11/13/2021 11:51 AM CHICKEN PICKER Sexual Orientation Straight 11/13/2021 11 :51 AM CHICKEN PICKER Obstetrics History Last Filed Vital Signs Vital Sign Reading Time Taken Comments Blood Pressure 122/76 11/26/2024 8:42 AM CHICKEN PICKER Pulse 62 11/26/2024 8:42 AM CHICKEN PICKER Temperature -13.4 C (7.8 F) 06/11/2024 11:07 AM CDT Respiratory Rate 17 06/11/2024 6:00 PM CDT Oxygen Saturation 99% 11/26/2024 8:42 AM CHICKEN PICKER Inhaled Oxygen Concentration - - Weight 99.8 kg (220 lb) 11/26/2024 8:42 AM CHICKEN PICKER Height 188 cm (6' 2 ) 11/26/2024 8:42 AM CHICKEN PICKER Body Mass Index 28.25 11/26/2024 8:42 AM CHICKEN PICKER Plan of Treatment Health Maintenance Due Date [...] 09/28/2016, 07/21 Medical Devices Implanted Type Area Mini Shifter Device Identifier Shelf Expiration Date Model / Serial / Lot U[employer] Lif[employer] [id number] BrittaneyPato s Perimount Magna Ease Thermafix 25mm - [id number] - [id number] Implanted:Qty: 1 on 06/01/2018 by Imer Davis MD at [facility] N/A: Heart [employer] 03/06/2022 [id number] / [id number] / Cardiva Medical Inc Device Vascular Closure Femoral Artery Bioabsorbable Dual Method Vascade 6-7fr Collagen [id number] - [id number] Implanted:Qty: 1 on 04/15/2024 by Fabio Romano MD at [facility] [employer] Inc 12/16/2025 700-580I-0 5U / / [id number] Medtronic Card Vasc Surgery 4.0 X 18mm Ori [place] Rx Coronary Stent [id number] - [id number] Implanted:Qty: 1 on 06/11/2024 by Fabio Romano MD at [facility] Medtronic Card Vasc Surgery 01/20/2027 [id number] / / [id number] 2000 Procedures Procedure Name Priority Date/Time Associated Diagnosis Comments TRANSTHORACIC ECHO (TTE) COMPLETE W DOPPLER/CF WO CONTRAST Routine 11/26/2024 1:43 PM CHICKEN PICKER H/O aortic valve replacement Cardiomyopathy, ischemic from Last 3 Months Results * TRANSTHORACIC ECHO (TTE) COMPLETE W DOPPLER/CF WO CONTRAST (11/26/2024 1:43 PM CHICKEN PICKER) LV EF 60-65 % CONS SCIMAGE Anatomical Region Laterality Modality Ultrasound 11/26/2024 12:5 9 PM CHICKEN PICKER Narrative 11/26/2024 4:18 PM CHICKEN PICKER [facility] Medical Group Cardiology [address], [address], [place] [address] P:[phone] P:[phone] Echocardiographic Report Patient Name: VAIBHAV DANIELS E [...] FINDINGS: Interpretation Site: Exam was interpreted at [facility]. Left Ventricle: Normal left ventricular systolic function. [...] By: Donte Ghosh MD 11/26/2024 4:16:49 PM CHICKEN PICKER Procedure Note Donte Ghosh MD - 11/26/2024 [facility] Medical Group Cardiology [facility], [address], [place] [address] P:[phone] P:[phone] Echocardiographic Report Patient Name: VAIBHAV DANIELS E [...] FINDINGS: Interpretation Site: Exam was interpreted at [facility]. Left Ventricle: Normal left ventricular systolic function. [...] By: Donte Ghosh MD 11/26/2024 4:16:49 PM CHICKEN PICKER us Donte Ghosh MD CV ECHO PROCEDURES Final Result from Last 3 Months Insurance [employer] MEDICARE GOLD AETNA MEDICARE GOLD Advance Directives For more information, please contact: [phone] * Full Code (Latest Code Status on File) Date Activated Date Inactivated Comments 05/28/2018 5:26 PM 06/09/2018 4:26 PM Care Teams Splitting Machine Feeder Relationship Specialty Start Date End Date Matt Carranza DO PCP - General Internal Medicine 05/20/18 Dakotah Mcrae MD [facility] [address] [facility] [place] [address] Consulting Physician Interventional Cardiology 06/05/18 Donte Ghosh MD [address] [facility] [address] [place] [address] Consulting Physician Cardiology 12/01/23 [place] [address] ADULT CARDIO, [facility] [address] [place] [address] Surgeon Cardiothoracic Surgery 12/01/23
[2025-01-27 22:30] VITALS: BP 151/86; PULSE 59; RESP 18; TEMP 36.5; O2SAT 100
== END 2025-01-27 22:37 | disposition home or self-care (01) ==
PROVIDERS: Physician Assistant; Emergency Provider Emergency Medicine; PCP Internal Medicine
DX: N21.1 Calculus in urethra (principal); I25.2 Old myocardial infarction; J32.9 Chronic sinusitis, unspecified; M10.9 Gout, unspecified; Z95.1 Presence of aortocoronary bypass graft; Z90.49 Acquired absence of other specified parts of digestive tract; R93.41 Abnormal radiologic findings on diagnostic imaging of renal pelvis, ureter, or bladder; Z79.02 Long term (current) use of antithrombotics/antiplatelets; Z79.82 Long term (current) use of aspirin; Z79.899 Other long term (current) drug therapy
CPT/HCPCS: 36415; 74176; 76870; 80048; 81001; 85025; 85055; 93976; 99284

== ENCOUNTER 2025-02-24 14:04 | Outpatient (CLI) | payer MEDICARE, SELFPAY ==
--- NOTE | ~2025-02-24 | CT_ITS ---
Noncontrast CT scan of the right shoulder CLINICAL HISTORY: Pain TECHNIQUE: Axial noncontrast imaging of the right shoulder was performed. Sagittal and coronal reform atted images were constructed. Dose reduction technique was used on this scan by utilizing automated exposure control and iterative reconstruction technique. The dose-length product (DLP) was 222.90 mGy -cm. Findings: No acute fracture or dislocation seen. There is moderate to advanced AC joint degenerative change, joint space narrowing and osteophyte formation about both sides the joint. There is also william re glenohumeral joint degenerative change with large inferior medial humeral head osteophyte, and kavya nt space narrowing, especially inferiorly. No definite joint effusion identified. No gross soft tissue abnormality seen. IMPRESSION: Severe glenohumeral joint degenerative change. Moderate to severe AC joint degenerative change. Reviewed, dictated and finalized at [facility].
--- OUTSIDE RECORDS SUMMARY | 2025-02-24 14:09 | XMS_ITS | Clinical Summary ---
Author Organization [facility] Address [address] [place] [address] Phone Care Team Providers Care Dog Catcher Name Role Phone FiorellaMatt roberts Primary Care [...] 12/01/2017 fluticasone (FLONASE) 50 MCG/ACT Suspension 1 [place] by Nasal route daily. Use in each [...] Insurance MEDICARE AETNA SENIOR SUPPLEMENTAL Care Teams Dog Catcher Relationship Specialty Start Date End Date Matt Carranza DO [address] [place] [address] [address] [facility] [address] PCP - General Internal Medicine 01/01/16
--- OUTSIDE RECORDS SUMMARY | 2025-02-24 14:09 | XMS_ITS | Referral Summary ---
Author Organization [facility] [place] [address] [place] [address] Care Team Providers Care Project Manager Interior Design Name Role Phone FiorellaMatt roberts Peter GUZMAN Primary Care Provider [phone] Dakotah Mcrae MD Unavailable [phone] Brandyn Toledo MD Unavailable Geoff Mesa MD Unavailable [phone] Encounters Date Type Department Care Team Description 01/28/2025 Telephone [facility] Medical Group Cardiology [address] [facility] [address] [place] [address] Brandyn Toledo MD 12/08/2024 Documentation [facility] Surgery [address] [facility] [address] [place] [address] Brooke Martinez from Last 3 Months Allergies Active Allergy [...] 5 mg tabletIndications :Coronary artery disease of [place] artery of [place] heart with stable angina pectoris,Essentia l hypertension [...] (05/29/2018): Added automatically from request for surgery [id number] Social History Tobacco Use Types Packs/Day Years [...] on file Legal Sex Male 2:51 PM LAUNDERETTE ATTENDANT Gender Identity Male 11/13/2021 11:51 AM LAUNDERETTE ATTENDANT Sexual Orientation Straight 11/13/2021 11 :51 AM LAUNDERETTE ATTENDANT Last Filed Vital Signs Vital Sign Reading Time Taken Comments Blood Pressure 122/76 11/26/2024 8:42 AM LAUNDERETTE ATTENDANT Pulse 62 11/26/2024 8:42 AM LAUNDERETTE ATTENDANT Temperature -13.4 C (7.8 F) 06/11/2024 11:07 AM CDT Respiratory Rate 17 06/11/2024 6:00 PM CDT Oxygen Saturation 99% 11/26/2024 8:42 AM LAUNDERETTE ATTENDANT Inhaled Oxygen Concentration - - Weight 99.8 kg (220 lb) 11/26/2024 8:42 AM LAUNDERETTE ATTENDANT Height 188 cm (6' 2 ) 11/26/2024 8:42 AM LAUNDERETTE ATTENDANT Body Mass Index 28.25 11/26/2024 8:42 AM LAUNDERETTE ATTENDANT Plan of Treatment Not on file Medical Devices Implanted Type Area Post Closing Specialist Device Identifier Shelf Expiration Date Model / Serial / Lot [employer] [id number] BrittaneyPato s Perimount Magna Ease Thermafix 25mm - [id number] - [id number] Implanted:Qty: 1 on 06/01/2018 by Imer Davis MD at [facility] N/A: Heart [employer] 03/06/2022 [id number] / [id number] / Cardiva Medical Inc Device Vascular Closure Femoral Artery Bioabsorbable Dual Method Vascade 6-7fr Collagen [id number] - [id number] Implanted:Qty: 1 on 04/15/2024 by Fabio Romano MD at [facility] [employer] 12/16/2025 700-580I-0 5U / / [id number] Medtronic Card Vasc Surgery 4.0 X 18mm [place] Scalf Rx Coronary Stent [id number] - [id number] Implanted:Qty: 1 on 06/11/2024 by Fabio Romano MD at [facility] Medtronic Card Vasc Surgery 01/20/2027 [id number] / / [id number] 2000 Insurance AETNA MEDICARE GOLD AETNA MEDICARE GOLD Advance Directives For more information, please contact: [phone] * Full Code (Latest Code Status on File) Date Activated Date Inactivated Comments 05/28/2018 5:26 PM 06/09/2018 4:26 PM Care Teams Project Manager Interior Design Relationship Specialty Start Date End Date Matt Carranza DO PCP - General Internal Medicine 05/20/18 Dakotah Mcrae MD [facility] [address] [place] [address], [place] [address] Consulting Physician Interventional Cardiology 06/05/18 Brandyn Toledo MD [address] [facility] [address] [place] [address] Consulting Physician Cardiology 12/01/23 [place] [address] ADULT CARDIO, [facility] [address] [place] [address] Surgeon Cardiothoracic Surgery 12/01/23
--- OUTSIDE RECORDS SUMMARY | 2025-02-24 14:09 | XMS_ITS | Clinical Summary ---
Author Organization [facility] Address [address] [place] [address] Care Team Providers Care Cost Estimator Name Role Phone Matt Carranza Primary Care [...] Active Active Problems No known active problems Family History Medical History Relation Name Comments [...] Comments Blood Pressure 144/79 09/05/2023 11:55 AM DIGITAL ARCHIVIST Pulse 58 09/05/2023 11:52 AM DIGITAL ARCHIVIST Temperature 36.2 C (97.2 F) 09/05/2023 11:52 AM DIGITAL ARCHIVIST Respiratory Rate 10 09/05/2023 11:52 AM DIGITAL ARCHIVIST Oxygen Saturation 100% 09/05/2023 11:52 AM DIGITAL ARCHIVIST Inhaled Oxygen Concentration - - Weight 99.3 kg (219 lb) 09/05/2023 11:52 AM DIGITAL ARCHIVIST Height 188 cm (6' 2 ) 08/21/2023 [...] 07/05/2029 07/05/2019 Colorectal Cancer Screening 07/05/2029 Insurance [facility] MEDICARE PART A AND B Care Teams Cost Estimator Relationship Specialty Start Date End Date Matt Carranza DO [address] [address] PCP - General Internal Medicine 05/19/23
--- OUTSIDE RECORDS SUMMARY | 2025-02-24 14:09 | XMS_ITS | Clinical Summary ---
Author Organization [facility] [address] Address [address] [place] [address] Care Team Providers Care Farm Machinery Engine Mechanic Name Role Phone Matt Carranza DO Primary Care Provider [phone]- [phone] Dakotah Mcrae MD Unavailable [phone] Brandyn Toledo MD Unavailable Geoff Mesa MD Unavailable Allergies [...] 5 mg tabletIndications :Coronary artery disease of rosebud artery of rosebud heart with stable angina pectoris,Essentia l hypertension [...] (05/29/2018): Added automatically from request for surgery [id number] Encounters Date Type Department Care Team Description 01/28/2025 Telephone [facility] Cardiology [address] [facility] [address] [place] [address] Brandyn Toledo MD 12/08/2024 Documentation [facility] [address] [facility] [address] [place] [address] Brooke Martinez from Last 3 Months Surgical History Surgery Date Site/Laterality Comments PROSTATE SURGERY VASECTOMY Medical History Medical History Date Comments Arthritis Coronary artery disease Essential hypertension 02/11/2020 Cataract Family History Medical History Relation Name Comments Diabetes Cousin Glaucoma Mother Arthritis Other Cancer Other [place] syndrome Other Heart disease Other Macular degeneration [...] on file Legal Sex Male 2:51 PM HORIZONTAL BORING MILL OPERATOR Gender Identity Male 11/13/2021 11:51 AM HORIZONTAL BORING MILL OPERATOR Sexual Orientation Straight 11/13/2021 11 :51 AM HORIZONTAL BORING MILL OPERATOR Obstetrics History Last Filed Vital Signs Vital Sign Reading Time Taken Comments Blood Pressure 122/76 11/26/2024 8:42 AM HORIZONTAL BORING MILL OPERATOR Pulse 62 11/26/2024 8:42 AM HORIZONTAL BORING MILL OPERATOR Temperature -13.4 C (7.8 F) 06/11/2024 11:07 AM CDT Respiratory Rate 17 06/11/2024 6:00 PM CDT Oxygen Saturation 99% 11/26/2024 8:42 AM HORIZONTAL BORING MILL OPERATOR Inhaled Oxygen Concentration - - Weight 99.8 kg (220 lb) 11/26/2024 8:42 AM HORIZONTAL BORING MILL OPERATOR Height 188 cm (6' 2 ) 11/26/2024 8:42 AM HORIZONTAL BORING MILL OPERATOR Body Mass Index 28.25 11/26/2024 8:42 AM HORIZONTAL BORING MILL OPERATOR Plan of Treatment Health Maintenance Due Date Last Done Comments Colon Cancer Screening-Colonoscopy 1950 Depression Screening 1950 Hepatitis C Screening 1949 Hepatitis B Screening 1967 Zoster Vaccine (1 of 2) 1999 Well Visit 65+ 2014 Fall Risk Assessment 06/11/2025 06/11/2024, 03/24/20 20 Influenza Vaccine (Season Ended) 2025 08/05/2018, 07/23/2017, 09/28/2016, Additional history exists DTaP/Tdap/Td Vaccine (3 - Td or Tdap) 12/31/2025 01/01/2016, 08/03/2013 Pneumococcal vaccine 65+ Completed 09/28/2016, 07/21 Medical Devices Implanted Type Area Otorhinolaryngologist Device Identifier Shelf Expiration Date Model / Serial / Lot [id number] [id number] Wali munson Perimount Magna Ease Thermafix 25mm - [id number] - [id number] Implanted:Qty: 1 on 06/01/2018 by Imer Davis MD at [facility] N/A: Heart Ugarte [employer] 03/06/2022 [id number] / [id number] / [employer] Device Vascular Closure Femoral Artery Bioabsorbable Dual Method Vascade 6-7fr Collagen [id number] - [id number] Implanted:Qty: 1 on 04/15/2024 by Fabio Romano MD at [facility] [employer] 12/16/2025 [id number] / / [id number] Medtronic Card Vasc Surgery 4.0 X 18mm Ori Mora Rx Coronary Stent [id number] - [id number] Implanted:Qty: 1 on 06/11/2024 by Fabio Romano MD at [facility] Medtronic Card Vasc Surgery 01/20/2027 [id number] / / [id number] 2001 Insurance [facility]IC[facility] Advance Directives For more information, please contact: [phone] * Full Code (Latest Code Status on File) Date Activated Date Inactivated Comments 05/28/2018 5:26 PM 06/09/2018 4:26 PM Care Teams Farm Machinery Engine Mechanic Relationship Specialty Start Date End Date Matt Carranza DO PCP - General Internal Medicine 05/20/18 Dakotah Mcrae MD [address] [id number] Consulting Physician Interventional Cardiology 06/05/18 Brandyn Toledo MD [address] [address] Consulting Physician Cardiology 12/01/23 [place] [address] [address] ADULT CARDIO, [address] [address] Surgeon Cardiothoracic Surgery 12/01/23
== END 2025-02-24 14:05 | disposition home or self-care (01) ==
PROVIDERS: PCP Internal Medicine; Visit Provider Nurse Practitioner
DX: M19.011 Primary osteoarthritis, right shoulder (principal)
CPT/HCPCS: 73200

== ENCOUNTER 2025-06-06 11:46 | Outpatient (CLI) | payer MEDICARE, SELFPAY ==
--- OUTSIDE RECORDS SUMMARY | 2025-06-06 13:01 | XMS_ITS | Clinical Summary ---
Author Organization [facility] Address [address] [place] [address] Phone Care Team Providers Care Correction Lieutenant Name Role Phone FiorellaMatt roberts Primary Care [...] 12/01/2017 fluticasone (FLONASE) 50 MCG/ACT Suspension 1 [place] by Nasal route daily. Use in each [...] 9:06 PM CDT Height 188 cm (6' 2) 03/05/2018 9:06 PM CDT Body Mass Index 26.32 03/05/2018 9:06 PM CDT Plan of Treatment Health Maintenance Due Date Last Done Comments Hepatitis C Virus (HCV) Screening 1950 Zoster Immunization (1 of 2) 1999 Respiratory Syncytial Virus (RSV) Immunization (Adult) (1 - 1-dose 75+ series) 2024 SARS-COV-2 Immunization ( season) 2024 Influenza Immunization (#1) 06/20/202501/2017, 09/28/2016, 08/14/2015, Additional history exists DTaP/Tdap/Td Immunization Discontinued 01/01/2016, Pneumococcal Immunization (50+ years) Completed 09/28/2016, 08/14/2015 Pneumococcal Immunization Combined Discontinued 09/28/2016, 08/14/2015 Hepatitis B Immunization Aged Out No longer eligible based on patient's age to complete this topic Human Papillomavirus (HPV) Immunization Aged Out No longer eligible based on patient's age to complete this topic Meningococcal Immunization (ACWY) Aged Out No longer eligible based on patient's age to complete this topic Rotavirus Immunization Aged Out No lo nger eligible based on patient's age to complete this topic Insurance MEDICARE AETNA SENIOR SUPPLEMENTAL Care Teams Correction Lieutenant Relationship Specialty Start Date End Date Matt Carranza DO [address] [facility] [place] [place] [address] PCP - General Internal Medicine 01/01/16
--- OUTSIDE RECORDS SUMMARY | 2025-06-06 13:01 | XMS_ITS | Encounter Summary ---
Author Organization [facility] Address [address] [place] [address] Care Team Providers Care 7Th Grade Teacher Name Role Phone Matt Carranza DO Primary Care Provider [phone]- [phone] Dakotah Mcrae MD Unavailable [phone]- [phone] Brandyn Toledo MD Unavailable Geoff Mesa MD Unavailable [phone] Encounter Details Date Type Department Care Team (Late st Contact Info) Description 06/23/2024 Orders Only [facility] [place] [facility] [address] [place] [id number] Scanning, Provider Social History Tobacco Use Types Packs/Day Years [...] on file Legal Sex Male 2:51 PM TAILOR APPRENTICE Gender Identity Male 11/13/2021 11:51 AM TAILOR APPRENTICE Sexual Orientation Straight 11/13/2021 11 :51 AM TAILOR APPRENTICE documented as of this encounter Plan of Treatment Not on file documented as of this encounter Procedures Procedure Name Priority Date/Time Associated Diagnosis Comments SCAN - RADIOLOGY/IMAGING 06/23/2024 documented in this encounter Results * SCAN - RADIOLOGY/IMAGING (06/23/2024) Anatomical Region Laterality Modality Other us Provider Scanning Final Result documented in this encounter Visit Diagnoses Not on filedocumented in this encounter Care Teams 7Th Grade Teacher Relationship Specialty Start Date End Date Matt Carranza DO PCP - General Internal Medicine 05/20/18 Dakotah Mcrae MD [address] [place], [place] [id number] Consulting Physician Interventional Cardiology 06/05/18 Brandyn Toledo MD [address] [place] [address] Consulting Physician Cardiology 12/01/23 Geoff Mesa MD [address] [place] [address] Surgeon Cardiothoracic Surgery 12/01/23 documented as of this encounter
--- OUTSIDE RECORDS SUMMARY | 2025-06-06 13:01 | XMS_ITS | Clinical Summary ---
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,Essentia l hypertension Take 1 tablet by mouth once daily 30 tablet 11 5 Active atorvastatin (LIPITOR) 40 mg tabletIndications :Dyslipidemia, goal LDL below 70 Take 1 tablet by mouth once daily 90 tablet 3 5 Active famotidine (PEPCID) 20 mg tabletIndications :Gastroesophageal reflux disease without esophagitis Take 1 tablet by mouth once daily 90 tablet 5 Active Active Problems Problem Noted Date Diagnosed Date Heartburn 06/03/2025 Prosthetic aortic valve stenosis 06/03/2025 Cardiomyopathy, ischemic 03/19/2024 Bilateral lower extremity edema 12/27/2022 LBBB (left bundle branch block) 10/30/2021 History of COVID-19 06/08/2021 Essential hypertension 02/11/2020 Hyperlipidemia LDL goal <70 01/27/2019 H/O aortic valve replacement 01/27/2019 Gastroesophageal reflux disease without esophagi tis 01/27/2019 Coronary artery disease of n ative heart with stable angina pectoris 05/28/2018 Overview (05/29/2018): Added automatically from request for surgery [id number] Encounters Date Type Department Care Team Description 06/03/2025 11:00 AM CDT Office Visit [facility] Medical Group Cardiology at [address] [place] [address] Brandyn Toledo MD 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 Heart disease Rheumatic fever ? Kidney stone ? 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 Gender Identity Male 11/13/2021 11:51 AM MARINE TOWER OPERATOR Sexual Orientation Straight 11/13/2021 11 :51 AM MARINE TOWER OPERATOR Obstetrics History Last Filed Vital Signs Vital Sign Reading Time Taken Comments Blood Pressure 100/60 06/03/2025 10:58 AM CDT Pulse 62 06/03/2025 10:58 AM CDT Temperature -13.4 C (7.8 F) 06/11/2024 11:07 AM CDT Respiratory Rate 17 06/11/2024 6:00 PM CDT Oxygen Saturation 95% 06/03/2025 10:58 AM CDT Inhaled Oxygen Concentration - - Weight 97.1 kg (214 lb) 06/03/2025 10:58 AM CDT Height 188 cm (6' 2) 06/03/2025 10:58 AM CDT Body Mass Index 27.48 06/03/2025 10:58 AM CDT Plan of Treatment Health Maintenance Due Date Last Done Comments Depression Screening 1949 Hepatitis C Screening 1949 Hepatitis B Screening 1967 Zoster Vaccine (1 of 2) 1999 Well Visit 65+ 2014 Fall Risk Assessment 06/11/2025 06/11/2024, 03/24/20 20 Influenza Vaccine (#1) 2025 8, 07/23/2017, 09/28/2016, Additional history exists DTaP/Tdap/Td Vaccine (3 - Td or Tdap) 12/31/2025 01/01/2016, 08/03/2013 Pneumococcal vaccine 65+ Completed 09/28/2016, 07/21 Medical Devices Implanted Type Area Regional Education Coordinator Device Identifier Shelf Expiration Date Model / Serial / Lot Kiddie Kist [id number] Brittaney-Edward s Perimount Magna Ease Thermafix 25mm - [id number] - [id number] Implanted:Qty: 1 on 06/01/2018 by Imer Davis MD at [facility] N/A: Heart U[employer]e [employer] 03/06/2022 [id number] / [id number] / [employer] Inc Device Vascular Closure Femoral Artery Bioabsorbable Dual Method Vascade 6-7fr Collagen [id number] - [id number] Implanted:Qty: 1 on 04/15/2024 by Fabio Romano MD at [facility] [employer] 12/16/2025 [id number]-0 [id number] / / [id number] Medtronic Card Vasc Surgery 4.0 X 18mm [place] Rx Coronary Stent [id number] - [id number] Implanted:Qty: 1 on 06/11/2024 by Fabio Romano MD at [facility] Medtronic Card Vasc Surgery 01/20/2027 [id number] / / [id number] Procedures Procedure Name Priority Date/Time Associated Diagnosis Comments POCT LIPID PANEL Routine 06/03/2025 10:5 9 AM CDT 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 from Last 3 Months Results * (ABNORMAL) POCT lipid panel (06/03/2025 10:59 AM CDT) Cholesterol, POC 115 <200 MG/DL HDL, POC 31(A) >=40 mg/dL Triglycerides, POC 100 <=149 mg/dL LDL Cholesterol POC 64 <=129 mg/dL Chol/HDL Ratio, POC 3.7 NONE Non-HDL Cholesterol, POC 84 NONE mg/dL Cholesterol Total, POC 115 30 - 199 mg/dL Capillary blood 06/03/2025 1 0:59 AM CDT Brandyn Toledo MD POINT OF CARE TEST ORDERA BLES Final Result from Last 3 Months Insurance [employer] MEDICARE GOLD [id number] [employer] MEDICARE GOLD Advance Directives For more information, please contact: [phone] * Full Code (Latest Code Status on File) Date Activated Date Inactivated Comments 05/28/2018 5:26 PM 06/09/2018 4:26 PM Care Teams Manager Of Tires Sales Relationship Specialty Start Date End Date Matt Carranza DO PCP - General Internal Medicine 05/20/18 Dakotah Mcrae MD [address] [place] [address] Consulting Physician Interventional Cardiology 06/05/18 Brandyn Toledo MD [address] [place] [address] Consulting Physician Cardiology 12/01/23 Geoff Mesa MD [address] [place] [address] Surgeon Cardiothoracic Surgery 12/01/23
--- OUTSIDE RECORDS SUMMARY | 2025-06-06 13:01 | XMS_ITS | Clinical Summary ---
Author Organization [facility] Address [address] [place] [address] Care Team Providers Care Concrete Mixing Plant Laborer Name Role Phone Matt Carranza Primary Care [...] Comments Blood Pressure 144/79 09/05/2023 11:55 AM AVIATION SUPPORT EQUIPMENT REPAIRER Pulse 58 09/05/2023 11:52 AM AVIATION SUPPORT EQUIPMENT REPAIRER Temperature 36.2 C (97.2 F) 09/05/2023 11:52 AM AVIATION SUPPORT EQUIPMENT REPAIRER Respiratory Rate 10 09/05/2023 11:52 AM AVIATION SUPPORT EQUIPMENT REPAIRER Oxygen Saturation 100% 09/05/2023 11:52 AM AVIATION SUPPORT EQUIPMENT REPAIRER Inhaled Oxygen Concentration - - Weight 99.3 kg (219 lb) 09/05/2023 11:52 AM AVIATION SUPPORT EQUIPMENT REPAIRER Height 188 cm (6' 2) 08/21/2023 2:47 PM CDT Body Mass Index 28.12 08/21/2023 2:47 PM CDT Plan of Treatment Health Maintenance Due Date Last Done Comments PNEUMOCOCCAL VACCINE 50+ YEARS (1 of 2 - PCV) 04/30/19 68 ZOSTER VACCINE (1 of 2) 1999 RSV VACCINE (60+ or ) (1 - 1-dose 75+ series) 2024 INFLUENZA VACCINE (#1) 2025 DTAP/TDAP/TD VACCINES (2 - Td or Tdap) 12/31/2025 COLORECTAL SCREENING Discontinued 07/05/2019 Colorectal Cancer Screening Discontinued FIT-DNA Q 3 years Discontinued FIT/FOBT Q 1 year Discontinued Flex Sig/CT Colonography Q 5 years Discontinued Insurance [facility] MEDICARE PART A AND B Care Teams Concrete Mixing Plant Laborer Relationship Specialty Start Date End Date Matt Carranza DO [address] [address] PCP - General Internal Medicine 05/19/23
[2025-06-06 20:45] LABS: Prostate Specific Antigen 0.7 ng/mL (< OR = 4.0)
== END 2025-06-06 11:47 | disposition home or self-care (01) ==
LOC: ANHGOSHLAB 11:47
PROVIDERS: PCP Nurse Practitioner; Visit Provider Nurse Practitioner
DX: Z12.5 Encounter for screening for malignant neoplasm of prostate (principal)
CPT/HCPCS: 36415; 84153; G0103